=== PATIENT | female | born 1955 | race Two or more races ===

== ENCOUNTER 2023-11-27 14:05 | Inpatient (IN) | payer OTHER, MEDICAID ==
[~2023-11-27] VITALS: Ht 152.4 cm; Wt 48.6 kg
[2023-11-27 14:46] LABS: Basophils # (auto) 0 10 ^3/uL (0-0.2); Basophils % (auto) 0.7 % (0.0-2.0); Eosinophils # (auto) 0.1 10 ^3/uL (0-0.8); Eosinophils % (auto) 1.6 % (0.0-7.0); Hematocrit 38.4 % (36.0-46.0); Hemoglobin 12.6 g/dL (12.2-16.2); Lymphocytes # (auto) 1.3 10 ^3/uL (0.4-5.4); Lymphocytes % (auto) 27.9 % (10.0-50.0); Mean Corpuscular Hemoglobin 30.5 pg (28.0-32.0); Mean Corpuscular Hgb Conc. 32.7 g/dL (32.0-36.0); Mean Corpuscular Volume 93.3 fL (80.0-100.0); Monocytes # (auto) 0.4 10 ^3/uL (0-1.3); Neutrophils # (auto) 2.9 10 ^3/uL (1.6-8.6); Neutrophils % (auto) 60.8 % (37.0-80.0); Nucleated Red Blood Cells % 0.2 %; Red Blood Cells 4.11 10^6/uL (4.0-5.20); White Blood Cell 4.8 10^3/uL (4.4-10.8)
[2023-11-27 15:03] LABS: Alanine Aminotransferase 49 U/L (7-40); Albumin 3.8 g/dL (3.2-4.8); Alkaline Phosphatase 158 U/L (46-116); Anion Gap 10 (5-15); Aspartate Aminotransferase 31 U/L (13-40); BUN/Creatinine Ratio 26.8 (10.0-20.0); Bilirubin, Total 0.7 mg/dL (0.2-1.0); Blood Urea Nitrogen 33 mg/dL (9-23); Calcium 9.4 mg/dL (8.7-10.4); Carbon Dioxide 22 mmol/L (20-30); Chloride 110 mmol/L (98-107); Glucose 100 mg/dL (74-106); Magnesium 1.8 mg/dL (1.6-2.6); Potassium 3.7 mmol/L (3.5-5.1); Sodium 142 mmol/L (136-145)
[2023-11-27 15:04] LABS: Total Protein 5.9 g/dL (5.7-8.2)
[2023-11-27 15:06] LABS: Red Cell Distribution Width 22.9 % (11.8-14.3)
[2023-11-27 15:13] LABS: INR 1.13 (0.9-1.15); Partial Thromboplastin Time 26.6 SEC (24.5-34.5); Prothrombin Time 11.9 sec (9.3-11.8)
[2023-11-27 16:27] VITALS: PULSE 101; RESP 18; O2SAT 100
[2023-11-27] MEDS: FUROSEMIDE 40 MG/4 ML VIAL IV ONE (16:37)
[2023-11-27] MEDS: ENOXAPARIN SOD 60 MG/0.6 ML SYRINGE SC ONE (16:37)
[2023-11-27] MEDS ORDERED: hydrALAZINE HCL 20 MG/ML VL IV PRN (17:30)
[2023-11-27] MEDS ORDERED: DOCUSATE SOD 100 MG CAP PO PRN (17:30)
[2023-11-27] MEDS ORDERED: NITROGLYCERIN 0.4 MG SL TAB SL PRN (20:30)
[2023-11-27] MEDS: MORPHINE SULFATE INJ 2 MG/ml SYRG IV PRN (22:07)
[2023-11-27] MEDS: ATORVASTATIN 20 MG TAB PO SCH (22:11)
[2023-11-27] MEDS: SODIUM CHLOR 0.9% PF (SALINE LOCK) 10ML VIAL/SYR IV SCH (22:12)
[2023-11-28] VITALS (10 sets, daily range): BP systolic 106–132; BP diastolic 83–103; PULSE 55–103; RESP 12–20; TEMP 94.6–98.1; O2SAT 90–100
[2023-11-28] MEDS ORDERED: CARV3.1240 PO (02:47)
[2023-11-28] MEDS ORDERED: ASPI81CH59 PO (02:47)
[2023-11-28] MEDS ORDERED: FURO40TA4 PO (02:47)
[2023-11-28 07:33] LABS: Basophils # (auto) 0 10 ^3/uL (0-0.2); Basophils % (auto) 0.8 % (0.0-2.0); Eosinophils # (auto) 0.1 10 ^3/uL (0-0.8); Eosinophils % (auto) 1.2 % (0.0-7.0); Hematocrit 38.7 % (36.0-46.0); Hemoglobin 12.9 g/dL (12.2-16.2); Lymphocytes # (auto) 1.4 10 ^3/uL (0.4-5.4); Lymphocytes % (auto) 30.5 % (10.0-50.0); Mean Corpuscular Hemoglobin 30.8 pg (28.0-32.0); Mean Corpuscular Hgb Conc. 33.4 g/dL (32.0-36.0); Mean Corpuscular Volume 92.2 fL (80.0-100.0); Monocytes # (auto) 0.4 10 ^3/uL (0-1.3); Neutrophils # (auto) 2.8 10 ^3/uL (1.6-8.6); Neutrophils % (auto) 59.5 % (37.0-80.0); Nucleated Red Blood Cells % 0.4 %; White Blood Cell 4.6 10^3/uL (4.4-10.8)
[2023-11-28 07:48] LABS: Red Cell Distribution Width 22.6 % (11.8-14.3)
[2023-11-28 07:50] LABS: Alanine Aminotransferase 46 U/L (7-40); Albumin 3.9 g/dL (3.2-4.8); Alkaline Phosphatase 157 U/L (46-116); Anion Gap 12 (5-15); BUN/Creatinine Ratio 23.9 (10.0-20.0); Blood Urea Nitrogen 34 mg/dL (9-23); Calcium 9.7 mg/dL (8.7-10.4); Carbon Dioxide 23 mmol/L (20-30); Chloride 107 mmol/L (98-107); Glucose 111 mg/dL (74-106); Sodium 142 mmol/L (136-145); Total Protein 6.6 g/dL (5.7-8.2)
[2023-11-28 07:54] LABS: Aspartate Aminotransferase 28 U/L (13-40)
[2023-11-28] MEDS: ASPirin 81 mg TAB PO SCH (09:29)
[2023-11-28] MEDS: FUROSEMIDE 40 MG/4 ML VIAL IV SCH (09:30)
[2023-11-28] MEDS: ONDANSETRON HCL 4 MG/2 ML VIAL IV PRN (17:22)
[2023-11-28] MEDS: CARVEDILOL 3.125 MG TAB PO SCH (21:47)
[2023-11-28] MEDS ORDERED: hydrALAZINE HCL 25 MG TAB PO SCH (22:00)
[2023-11-29] VITALS (7 sets, daily range): BP systolic 95–120; BP diastolic 75–94; PULSE 81–93; RESP 17–19; TEMP 97.6–98.7; O2SAT 90–100
[2023-11-29] MEDS: HYDROcodone-ACET 5/325MG TAB PO PRN (03:04)
[2023-11-29 06:07] LABS: Base Excess -1.8 mmol/L (-2.0-2.0)
[2023-11-29] MEDS: ACETAMINOPHEN 325 MG TAB PO PRN (06:43)
[2023-11-29] MEDS: ISOSORBIDE MONONITRATE ER 60 MG TAB PO SCH (09:14)
[2023-11-29] MEDS: ENOXAPARIN SOD 60 MG/0.6 ML SYRINGE SC SCH (18:31)
[2023-11-29] MEDS: METOPROLOL TARTRATE 25 MG TAB PO ONE (18:57)
[2023-11-29] MEDS ORDERED: CARVEDILOL 3.125 MG TAB PO SCH (22:00)
[2023-11-29] MEDS ORDERED: hydrALAZINE HCL 25 MG TAB PO SCH (22:00)
[2023-11-30 08:00] VITALS: PULSE 84; O2SAT 100
[2023-11-30 09:00] VITALS: BP 112/88; PULSE 68; RESP 16; TEMP 98.3; O2SAT 100
[2023-11-30] MEDS: METOPROLOL TARTRATE 25 MG TAB PO SCH (09:21)
[2023-11-30] MEDS: hydrALAZINE HCL 25 MG TAB PO SCH (10:26)
[2023-11-30 13:00] VITALS: BP 108/81; PULSE 82; RESP 16; TEMP 97.9; O2SAT 100
[2023-11-30 16:43] VITALS: BP 114/86; PULSE 85; RESP 16; TEMP 98; O2SAT 92
[2023-11-30 20:00] VITALS: PULSE 80; PULSE 82; RESP 19; O2SAT 100
[2023-11-30 20:55] LABS: Chloride 109 mmol/L (98-107); Potassium 4.1 mmol/L (3.5-5.1); Sodium 142 mmol/L (136-145)
[2023-11-30 20:56] LABS: Anion Gap 7 (5-15); Carbon Dioxide 26 mmol/L (20-30)
[2023-11-30 20:57] LABS: Calcium 8.8 mg/dL (8.7-10.4)
[2023-11-30 21:00] VITALS: BP 100/74; PULSE 80; RESP 19; TEMP 97.8; O2SAT 100
[2023-11-30 21:01] LABS: BUN/Creatinine Ratio 27.5 (10.0-20.0); Blood Urea Nitrogen 42 mg/dL (9-23); Glucose 114 mg/dL (74-106)
[2023-11-30] MEDS ORDERED: METOPROLOL SUCCINATE XL 50 MG TAB PO SCH (22:00)
[2023-12-01] VITALS (8 sets, daily range): BP systolic 120–133; BP diastolic 82–97; PULSE 74–96; RESP 15–20; TEMP 97.4–98.7; O2SAT 67–100
[2023-12-01] MEDS: METOPROLOL SUCCINATE XL 50 MG TAB PO SCH (21:46)
[2023-12-02] VITALS (9 sets, daily range): BP systolic 117–130; BP diastolic 79–98; PULSE 52–97; RESP 17–22; TEMP 97–98.4; O2SAT 90–100
[2023-12-02] MEDS: APIXABAN 2.5 MG TAB PO SCH (06:21)
[2023-12-02 07:40] LABS: Anion Gap 10 (5-15); Carbon Dioxide 27 mmol/L (20-30); Chloride 105 mmol/L (98-107); Potassium 4.2 mmol/L (3.5-5.1); Sodium 142 mmol/L (136-145)
[2023-12-02 07:41] LABS: Calcium 8.8 mg/dL (8.7-10.4)
[2023-12-02 07:46] LABS: BUN/Creatinine Ratio 25.4 (10.0-20.0); Glucose 103 mg/dL (74-106)
[2023-12-02 07:50] LABS: Blood Urea Nitrogen 30 mg/dL (9-23)
[2023-12-02] MEDS: hydrALAZINE HCL 25 MG TAB PO SCH (10:30)
[2023-12-02] MEDS ORDERED: LORazepam 0.5 MG TAB PO PRN (14:30)
[2023-12-02 15:11] LABS: Base Excess 1.2 mmol/L (-2.0-2.0)
[2023-12-03] VITALS (9 sets, daily range): BP systolic 124–142; BP diastolic 86–106; PULSE 51–106; RESP 17–19; TEMP 97.3–98.1; O2SAT 94–100
[2023-12-03 07:15] LABS: Chloride 106 mmol/L (98-107); Potassium 4.7 mmol/L (3.5-5.1); Sodium 141 mmol/L (136-145)
[2023-12-03 07:16] LABS: Anion Gap 6 (5-15); Calcium 9.2 mg/dL (8.7-10.4); Carbon Dioxide 29 mmol/L (20-30)
[2023-12-03 07:21] LABS: BUN/Creatinine Ratio 24.2 (10.0-20.0); Blood Urea Nitrogen 30 mg/dL (9-23); Glucose 116 mg/dL (74-106)
[2023-12-03] MEDS ORDERED: METO25TA93 PO (12:44)
[2023-12-03] MEDS ORDERED: LORA-655 PO (12:44)
[2023-12-03] MEDS ORDERED: HYDR25TA87 PO (12:44)
[2023-12-03] MEDS ORDERED: ISOS1TAB29 PO (12:44)
[2023-12-03] MEDS ORDERED: FURO1TAB33 PO (12:48)
[2023-12-03] MEDS ORDERED: APIX2.5T PO (12:48)
[2023-12-04 01:00] VITALS: BP 129/96; PULSE 99; RESP 19; TEMP 97.5; O2SAT 97
[2023-12-04 05:00] VITALS: BP 124/90; PULSE 102; RESP 19; TEMP 98.7; O2SAT 99
[2023-12-04 09:00] VITALS: BP 139/86; PULSE 101; RESP 22; TEMP 97.6; O2SAT 100
== END 2023-12-04 11:52 | disposition home or self-care (01) | DRG 280 ==
LOC: EDBD 14:05 → ER 14:12 → TELE 20:31 → TELE-CENTR 11-28 02:40
PROVIDERS: ADMIT Nurse Practitioner Family; ATTEND Nurse Practitioner Acute Care
DX: I11.0 Hypertensive heart disease with heart failure (principal); I50.23 Acute on chronic systolic (congestive) heart failure; I21.A1 Myocardial infarction type 2; J96.01 Acute respiratory failure with hypoxia; N17.0 Acute kidney failure with tubular necrosis; I42.9 Cardiomyopathy, unspecified; N20.0 Calculus of kidney; R74.01 Elevation of levels of liver transaminase levels; E78.5 Hyperlipidemia, unspecified; N13.9 Obstructive and reflux uropathy, unspecified; I48.0 Paroxysmal atrial fibrillation; Z87.442 Personal history of urinary calculi; Z83.3 Family history of diabetes mellitus; Z79.82 Long term (current) use of aspirin; Z79.899 Other long term (current) drug therapy; Z93.6 Other artificial openings of urinary tract status
CPT/HCPCS: 36415; 36600; 71045; 80048; 80053; 82805; 83735; 83880; 84484; 85025; 85610; 85730; 93005; 93306; 99291; G0378; J2405

== ENCOUNTER → 2024-03-06 | Outpatient (CLI) | payer MEDICARE, MEDICAID ==
[~2024-03-06] VITALS: Ht 152.4 cm; Wt 42.2 kg
[~2024-03-06] MED LIST: AMIO200T13 PO; APIX2.5T PO; BUDE1AER16 PO; CARV-214 PO; FURO40TA4 PO; HYDR25TA87 PO; IPRAAER6 PO; ISOS1TAB29 PO; LORA-655 PO; MIDO10TA10 PO; PANT40TA2 PO; POTA-36 PO; SODI650T PO
[2024-03-06] MEDS: REGADENOSON 0.4 MG/5 ML SYRG IV ONE ×2 (11:38→11:44)
--- NOTE | 2024-03-07 09:41 | DVHSR ---
APPROVED REPORT Exam: Nuclear Stress Test Indication: Atrial Fibrillation, Congestive Heart Failure, CKD BMI: 0 Medical History Medical History: Atrial Fibrillation, CHF Allergies: No known drug allergies Stress Test Details Stress Test: Pharmacologic stress testing performed using 0.4 mg of regadenoson per 5 mL given IV ov er 10 seconds. HR Resting HR: 82 bpmMax Heart Rate (APMHR): 150.749976 bpm Max HR Achieved: 89 bpmTarget HR (85% APMHR): 127.527725 bpm % of APMHR: 59.33 Recovery HR: 78 bpm BP Resting BP: 130/93 mmHg Recovery BP: 126/79 mmHg ECG Resting ECG: Sinus Rhythm Clinical Reason for Termination: Completed protocol Nurse Comments Recieved pt. from [facility]. A/Ox4 on RA. Connected to electronic device monitor, VS stable. PIV flushes well. Reviewed POC. Pt. verbalized understanding of procedure including risks and side ef fects, agrees for stress testing. Lexiscan stress test performed per protocol. [facility] tech administered Cardiolite. Pt. tolerated well . Pt. stable, no change on exam. VS returned to baseline. Transferred to [facility] via wheelchair w/ te ch. Stress ECG Conclusion Resting ECG shows normal sinus rhythm with a poor R-wave progression indicating possible old anterior infarction. No significant STT wave changes was noted to suggest ischemia. Resting images shows near homogeneous uptake of radioactive tracer throughout the myocardium without evidence of myocardial infarction. Stress images shows near homogeneous uptake of radioactive tracer throughout the myocardium without e vidence of myocardial ischemia. There is severely reduced left ventricular systolic function estimated ejection fraction 21%. Impression: Severely reduced left ventricular systolic function, no evidence of ischemia, low to mod erate risk study NM EXAM: Myocardial Perfusion REST/STRESS Imaging Protocol: Rest Tc-99m/Stress Tc-99m 1 day Resting Data Rest SPECT myocardial perfusion imaging was performed in supine position 30 minutes following the int ravenous injection of 7.6 mCi of Tc-99m Sestamibi. Time of rest injection: 1050 Time of rest imagin Date: 03/06/2024 Administration Route: IV Administration Site: Right Hand Pharmacologic Stress Pharmacologic stress test was performed by injecting Regadenoson 0.4 mg IV push followed by the intra venous injection of 21.5 mCi of Tc-99m Sestamibi. Pharmacologic stress test was performed by injecting mg IV push followed by the intravenous inject ion of mCi of Time of stress injection: 1137 Time of stress imagin Administration Route: IV Administration Site: Right Hand Gated Stress SPECT was performed 45 minutes after stress injection. The images were gated to evaluate regional wall motion and calculate left ventricular ejection fracti on. Nuclear Conclusion ECG Findings: negative for ischemia Clinical Findings: negative for ischemia Nuclear Findings: negative for ischemia Exercise Capacity: not assessed Left Ventricular Function: abnormal Risk Study: low Resting ECG shows normal sinus rhythm with a poor R-wave progression indicating possible old anterior infarction. No significant STT wave changes was noted to suggest ischemia. Resting images shows near homogeneous uptake of radioactive tracer throughout the myocardium without evidence of myocardial infarction. Stress images shows near homogeneous uptake of radioactive tracer throughout the myocardium without e vidence of myocardial ischemia. There is severely reduced left ventricular systolic function estimated ejection fraction 21%. Impression: Severely reduced left ventricular systolic function, no evidence of ischemia, low to mod erate risk study
== END | disposition home or self-care (01) ==
LOC: XYW 10:38
PROVIDERS: ATTEND Specialist
DX: I48.91 Unspecified atrial fibrillation (principal); I50.9 Heart failure, unspecified; N18.9 Chronic kidney disease, unspecified
CPT/HCPCS: 78452; 93017; A9500; J2785

== ENCOUNTER 2024-04-26 15:58 | Emergency (ER) | payer OTHER, MEDICAID ==
[~2024-04-26] VITALS: Ht 152.4 cm; Wt 41.0 kg
--- NOTE | 2024-04-26 16:37 | ED.PDOC ---
SOB-HPI HPI Comments HPI: Poor Historian. 68-year-old female brought in by ambulance from home an accompanied by her daughter bedside. Patient was discharged from [facility] yesterday where she was being evaluated for chronic congestive heart failure. She was started on a dobutamine drip at that time and was discharged home with a a drip. Home health nurse was supposed to come today to show the family how to refill it and how to use it. The daughter suspected that the pump was not working and stated the patient started developing shortness of breath and hour after. She tried to reach home health but they are not coming to her house today. Pre-hospital course vital signs were stable. Patient wears supplement oxygen at home. Upon arrival the nursing staff evaluated the pump and they are still medicine left in the bag and it appears to be working fine. VITALS: Temp: 97.6 F RR: 20 02 sat : 93 % on room air HR: 81 BP: 117/72 PMH: AFIB, ADIS, CHF, CKF, HLD, HTN, Home O2 use, and acute respiratory failure. PSH: CABG, left chronic nephrostomy tube for history of kidney stones, partial hysterectomy Social history: denies tobacco use, denies ETOH use, denies drug use Medications: levothyroxine, Protonix, Bumex, Lipitor, eliquis Allergies: denies REVIEW OF SYSTEMS: CONSTITUTIONAL: Denies acute: fever, diaphoresis, chills, HEAD: Denies acute: headache, photophobia Eyes: Denies acute: Double vision, vision loss, eye pain, eye discharge. EARS: Denies acute: tinnitus, hearing loss, ear discharge, ear pain, THROAT: Denies acute: sore throat, swelling, difficulty swallowing , pain with swallowing, change in voice. NECK: Denies acute: neck pain, neck swelling, stiff neck. HEART: Denies acute : chest pain, palpitations, LUNGS: Denies acute: wheezing, cough, hemoptysis ABDOMEN: Denies acute: abdominal pain, Nausea, Vomiting, diarrhea, melena , hematemesis, hematochezia SKIN: Denies acute: rash, redness, lesions, itchiness. EXTREMITIES: Denies acute: calf pain, numbness, tingling, weakness, denies pain in extremity. Denies acute: Low back pain. Neuro: Denies acute: focal neurological deficit, motor or sensory focal neurological deficit, tremors, seizure like activity, confusion, dizziness, change in mental status, loss of bowel or bladder function, cauda equina like symptoms. : Denies acute: dysuria, hematuria, flank pain, increase in urinary frequency. PSYCH: Denies acute: hallucination, suicidal ideation, homicidal ideation. FEMALE: Denies acute: abnormal vaginal bleeding, foul odor, unusual discharge. PHYSICAL EXAM: General: no acute distress, awake and alert. Head: normocephalic, atraumatic. Neck: supple, trachea is midline, no swelling. Throat: Normal phonation. Eyes:, no erythema, no purulent discharge, no proptosis, no icterus. Heart: regular rate, regular rhythm, no significant murmur appreciated. Lungs: no apparent respiratory distress, Able to speak in full sentences. No wheezing, no rhonchi, no crackles. No stridors Clear to auscultation bilaterally. Abdomen: non tender to palpation, non distended, soft, no guarding, no rebound, + bowel sounds. Neuro: Awake, Alert, oriented to name, self, situation, follows commands GCS=15. Speech is normal. Skin: no petechia, no purpura, no cyanosis, non-pale, not jaundice. Lower extremities: --no - Pitting edema no deformity, no focal swelling, no calf TTP. Makes eye contact. moves all four extremities. Face: no apparent facial droop. 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 Was a procedure done?: No X-Ray, Labs, Meds, VS Vital Signs Date Time Temp Pulse Resp B/P (MAP) Pulse Ox O2 Delivery O2 Flow Rate FiO2 04/26/24 19:11 120/69 04/26/24 16:50 79 12 109/74 (86) 100 04/26/24 16:50 79 12 100 Nasal Cannula* 2 28 04/26/24 16:17 97.6 81 20 117/72 (87) 93 04/26/24 16:04 80 Lab Test 04/26/24 18:05 04/26/24 17:00 Range/Units Troponin I High Sensitivity 25 23 </=34 ng/L White Blood Count 6.6 4.4-10.8 10^3/uL Red Blood Count 3.41 L 4.0-5.20 10^6/uL Hemoglobin 9.3 L 12.2-16.2 g/dL Hematocrit 29.4 L 36.0-46.0 % Mean Corpuscular Volume 86.3 80.0-100.0 fL Mean Corpuscular Hemoglobin 27.4 L 28.0-32.0 pg Mean Corpuscular Hemoglobin Concent 31.8 L 32.0-36.0 g/dL Red Cell Distribution Width 21.0 H 11.8-14.3 % Platelet Count 545 H 140-450 10^3/uL Mean Platelet Volume 7.4 6.9-10.8 fL Neutrophils (%) (Auto) 75.8 37.0-80.0 % Lymphocytes (%) (Auto) 9.6 L 10.0-50.0 % Monocytes (%) (Auto) 11.4 0.0-12.0 % Eosinophils (%) (Auto) 2.0 0.0-7.0 % Basophils (%) (Auto) 1.2 0.0-2.0 % Neutrophils # (Auto) 5.0 1.6-8.6 10 ^3/uL Lymphocytes # (Auto) 0.6 0.4-5.4 10 ^3/uL Monocytes # (Auto) 0.8 0-1.3 10 ^3/uL Eosinophils # (Auto) 0.1 0-0.8 10 ^3/uL Basophils # (Auto) 0.1 0-0.2 10 ^3/uL Nucleated Red Blood Cells 0.1 % Sodium Level 132 L 136-145 mmol/L Potassium Level 3.9 3.5-5.1 mmol/L Chloride Level 103 98-107 mmol/L Carbon Dioxide Level 19 L 20-31 mmol/L Anion Gap 10 5-15 Blood Urea Nitrogen 62 H 9-23 mg/dL Creatinine 2.89 H 0.550-1.02 mg/dL Glomerular Filtration Rate Calc 17 >90 mL/min BUN/Creatinine Ratio 21.5 H 10.0-20.0 Serum Glucose 79 74-106 mg/dL Calcium Level 9.7 8.7-10.4 mg/dL Total Bilirubin 0.2 0.2-1.0 mg/dL Aspartate Amino Transferase (AST) 47 H 13-40 U/L Alanine Aminotransferase (ALT) 38 7-40 U/L Alkaline Phosphatase 202 H 46-116 U/L B-Type Natriuretic Peptide 224.08 0-100 pg/mL Total Protein 7.8 5.7-8.2 g/dL Albumin 4.1 3.2-4.8 g/dL Current Medications Medications (Trade) Dose Ordered Sig/Mic Route Start Time Stop Time Status Last Admin Acetaminophen/ Hydrocodone Bitart ([place] 5/325MG Tab) 1 tab ONCE ONCE PO 04/26/24 17:45 04/26/24 17:46 DC 04/26/24 17:45 [place] [address] Ph: [phone] DIAGNOSTIC IMAGING Diagnostic Imaging Report : [id number] Signed PATIENT: CHRISSY MONTOYA ACCT: [id number] UNIT: [id number] : 1955 LOC: ER ROOM / BED: / AGE / SEX: 68 / F ADM STATUS: REG ER SERVICE 1632 ORDERING PHYSICIAN: KAROLINA KEEN DO PROCEDURE(s): CXRP - CHEST PORTABLE REASON: sob ORDER NUMBER(s): [id number], ACCESSION NUMBER(s): [id number] EXAMINATION: AP portable chest radiograph CLINICAL HISTORY: sob COMPARISON: XY CHEST XRAY 1 VIEW on DOS: 02/06/24 FINDINGS: Lead wires overlie the thorax. Right-sided PICC line is noted. Cardiac silhouette appears mildly enlarged. Mild central interstitial prominence. No dominant consolidation identified. No definite pleural effusion or pneumothorax. IMPRESSION: Mild congestive type pattern. Please correlate to exclude atypical infection. ATED BY: JAMIE LE MD DICTATED DATE/TIME: 04/26/24 6289 SIGNED BY: JAMIE LE MD SIGNED DATE/TIME: 04/26/24 173 CC: Time of 1ST Reevaluation: 19:18 (I discussed with the patient and family admission to the hospital. Patient absolutely does not want to stay in the h ospital. Her breathing and vital signs are stable. She wants to go home. Her dobutamine drip is functional. Daughter at bedside agrees with the plan.) Reevaluation 1ST: Resolved Patient Education/Counseling: Diagnosis, Treatment Family Education/Counseling: No Family Present Comments MDM: Patient presented with the above HPI.----- shortness of breath---- workup was initiated. patient was found with the above mentioned diagnosis. the following medications were ordered: [place], Lasix the following tests were ordered: troponin x3, EKG x 1, chest x-ray, UA, CBC, CMP, BNP, Patient ED course and VS have been stabilized. Patient has been reassessed in the ED and remained in a stable condition. Patient has been observed in the ED adequate length of time to insure improvement/stability. Escalation of care considered: Consideration of escalation to observation or admission. patient was DISCHARGED after further evaluation and treatment of their presentation. All the reports of any imaging studies that were ordered by myself were reviewed by myself. Departure 1 Departure Time of Disposition: 19:18 Impression: Primary Impression: Dyspnea Additional Impression: Congestive heart failure Disposition: 01 HOME / SELF CARE / HOMELESS Condition: Stable Additional Instructions: Additional discharge instructions: You MUST follow-up with your primary care/family doctor in 1 to 2 days. If you are unable to see your primary care/family doctor, please return to our emergency room for re-assessment and re-evaluation in 1 to 2 days. Return to the emergency room here in our facility or to the nearest ER [facility] if your symptoms change or worsen. CONSULTATIONS: you MUST Follow-up for consultation as soon as possible with: cardiology in 1-2 days. Please call for appointment. You MUST call the consultants office yourself to make an appointment. You may need to arrange that through your insurance and/or your primary/family doctor. If you are unable to see the sales consultant residential manager in 1 to 2 days, you must return to our emergency room (or any other ER of your choice) for re-assessment and re- evaluation. Adequate fluid hydration. Below is a copy of your radiological report for follow up: [facility] [id number] [facility] [address] Ph: [phone] DIAGNOSTIC IMAGING Diagnostic Imaging Report : [id number] Signed PATIENT: CHRISSY MONTOYA ACCT: [id number] UNIT: [id number] : 1955 LOC: ER ROOM / BED: / AGE / SEX: 68 / F ADM STATUS: REG ER SERVICE 1632 ORDERING PHYSICIAN: KAROLINA KEEN DO PROCEDURE(s): CXRP - CHEST PORTABLE REASON: sob ORDER NUMBER(s): [id number], ACCESSION NUMBER(s): [id number] EXAMINATION: AP portable chest radiograph CLINICAL HISTORY: sob COMPARISON: XY CHEST XRAY 1 VIEW on DOS: 02/06/24 FINDINGS: Lead wires overlie the thorax. Right-sided PICC line is noted. Cardiac silhouette appears mildly enlarged. Mild central interstitial prominence. No dominant consolidation identified. No definite pleural effusion or pneumothorax. IMPRESSION: Mild congestive type pattern. Please correlate to exclude atypical infection. ATED BY: JAMIE LE MD DICTATED DATE/TIME: 04/26/241730 SIGNED BY: JAMIE LE MD SIGNED DATE/TIME: 04/26/241730 CC: Discharged With: Self Critical Care Note Critical Care Time?: No Heart Score Heart Score: Heart Score Response (Comments) Value History Moderate Suspicious 1 Age >65 2 Risk Factors >3 or Hx ASHD 2 Troponin Normal limit 0 Total 5 I personally scribed for KAROLINA KEEN DO ([email or web address]) on 04/26/24 at 17:53. Electronically submitted by Sj Quiles ([employer]). I personally scribed for KAROLINA KEEN DO ([email or web address]) on 04/26/24 at 19:55. Electronically submitted by Sj Quiles ([employer]). I personally scribed for KAROLINA KEEN DO ([email or web address]) on 04/26/24 at 21:28. Electronically submitted by Sj Quiles ([employer]). KAROLINA KEEN DO Apr 26, 2024 16:37
[2024-04-26 16:50] VITALS: BP 109/74; PULSE 79; RESP 12; O2SAT 100
[2024-04-26 17:29] LABS: Basophils # (auto) 0.1 10 ^3/uL (0-0.2); Eosinophils # (auto) 0.1 10 ^3/uL (0-0.8); Hemoglobin 9.3 g/dL (12.2-16.2); Lymphocytes # (auto) 0.6 10 ^3/uL (0.4-5.4); Mean Corpuscular Volume 86.3 fL (80.0-100.0); Monocytes # (auto) 0.8 10 ^3/uL (0-1.3); White Blood Cell 6.6 10^3/uL (4.4-10.8)
[2024-04-26 17:31] LABS: Basophils % (auto) 1.2 % (0.0-2.0); Hematocrit 29.4 % (36.0-46.0); Lymphocytes % (auto) 9.6 % (10.0-50.0); Mean Corpuscular Hemoglobin 27.4 pg (28.0-32.0); Mean Corpuscular Hgb Conc. 31.8 g/dL (32.0-36.0); Monocytes % (auto) 11.4 % (0.0-12.0); Neutrophils % (auto) 75.8 % (37.0-80.0); Nucleated Red Blood Cells % 0.1 %; Platelet Count (auto) 545 10^3/uL (140-450); Red Blood Cells 3.41 10^6/uL (4.0-5.20)
--- NOTE | 2024-04-26 17:33 | DVH ---
EXAMINATION: AP portable chest radiograph CLINICAL HISTORY: sob COMPARISON: XY CHEST XRAY 1 VIEW on DOS: 02/06/24 FINDINGS: Lead wires overlie the thorax. Right-sided PICC line is noted. Cardiac silhouette appears mildly enlarged. Mild central interstitial prominence. No dominant consoli dation identified. No definite pleural effusion or pneumothorax. IMPRESSION: Mild congestive type pattern. Please correlate to exclude atypical infection.
[2024-04-26] MEDS: HYDROcodone-ACET 5/325MG TAB PO ONE (17:45)
[2024-04-26 18:05] LABS: Alanine Aminotransferase 38 U/L (7-40); Albumin 4.1 g/dL (3.2-4.8); Anion Gap 10 (5-15); BUN/Creatinine Ratio 21.5 (10.0-20.0); Calcium 9.7 mg/dL (8.7-10.4); Chloride 103 mmol/L (98-107); Glucose 79 mg/dL (74-106); Potassium 3.9 mmol/L (3.5-5.1)
[2024-04-26 18:06] LABS: Total Protein 7.8 g/dL (5.7-8.2)
[2024-04-26 18:13] LABS: Alkaline Phosphatase 202 U/L (46-116); Aspartate Aminotransferase 47 U/L (13-40); Bilirubin, Total 0.2 mg/dL (0.2-1.0); Blood Urea Nitrogen 62 mg/dL (9-23); Carbon Dioxide 19 mmol/L (20-31); Sodium 132 mmol/L (136-145)
--- NOTE | 2024-04-26 19:03 | ECG ---
[facility] Test Date: 2024-04-26 Test Time: 16:04:28 Pat Name: CHRISSY MONTOYA Department: ED Room: Gender: F Fullerette: TYLER : 1955 Requested By: KAROLINA KEEN Order Number: [id number] Reading MD: Jonah Gamble Measurements Intervals [place] Rate: 80 P: 36 FL: 194 QRS: -28 QRSD: 96 T: 87 QT: 402 QTc: 464 Interpretive Statements Sinus rhythm Left ventricular hypertrophy Inferior infarct, old Anterior infarct, old Lateral leads are also involved Baseline wander in lead(s) III Electronically Signed On 04-30-2024 13:02:39 PST by Jonah Gamble Please click the below link to view image of tracing.
[2024-04-26] MEDS: FUROSEMIDE 20 MG/2 ML VIAL IV ONE (19:11)
== END 2024-04-27 19:53 | disposition home or self-care (01) ==
LOC: ER 15:58 → EDBD 15:58 → ER 04-27 19:53
DX: I11.0 Hypertensive heart disease with heart failure (principal); I50.9 Heart failure, unspecified; E78.5 Hyperlipidemia, unspecified; I25.2 Old myocardial infarction; Z95.1 Presence of aortocoronary bypass graft; Z99.81 Dependence on supplemental oxygen
CPT/HCPCS: 36415; 71045; 80053; 83880; 84484; 85025; 93005

== ENCOUNTER 2024-07-26 15:43 | Inpatient (IN) | payer OTHER, MEDICAID ==
[~2024-07-26] VITALS: Ht 147.3 cm; Wt 42.7 kg
--- NOTE | 2024-07-26 16:09 | ED.PDOC ---
General HPI Comments HPI: 69 year old female presents to the ED with chief complaint of left flank pain and nephrostomy tube disfunction. Patient reports that she has been experiencing pain to her left flank for the past 2 days with associated minimal output to her nephrostomy bag, despite taking water pills. Patient relays that she originally had her nephrostomy placed due to having a kidney stone on the left side 7 months ago and the most recent replacement was on 04/25 at [facility]. Patient states that she has associated chest pain whenever her left flank pain comes on. Patient's daughter notes that the patient receives Dobutamine infusions daily through a right upper extremity PICC line for her CHF. Patient denies any fever, chills, abdominal pain, dysuria, hematuria, or SOB. Initial Vital Signs: Temp : 99.2F BP: 123/78 HR: 117 RR: 16 SpO2: 99% on RA Past Medical History: HTN, HLD, CKF, CHF, A-Fib, Kidney stones Past Surgical History: Left nephrostomy. Social History: Denies smoking, ETOH, or drug use. Allergies: NKDA HPI: Poor Historian. REVIEW OF SYSTEMS: CONSTITUTIONAL: Denies acute: fever, diaphoresis, chills, generalized weakness. HEAD: Denies acute: headache, photophobia Eyes: Denies acute: Double vision, vision loss, eye pain, eye discharge. EARS: Denies acute: tinnitus, hearing loss, ear discharge, ear pain, THROAT: Denies acute: sore throat, swelling, difficulty swallowing , pain with swallowing, change in voice. NECK: Denies acute: neck pain, neck swelling, stiff neck. HEART: Denies acute : chest pain, palpitations, LUNGS: Denies acute: SOB, wheezing, cough, hemoptysis ABDOMEN: Denies acute: abdominal pain, Nausea, Vomiting, diarrhea, melena , hematemesis, hematochezia SKIN: Denies acute: rash, redness, lesions, itchiness. EXTREMITIES: Denies acute: calf pain, numbness, tingling, weakness, denies pain in extremity. Denies acute: Low back pain. Neuro: Denies acute: focal neurological deficit, motor or sensory focal neurological deficit, tremors, seizure like activity, confusion, dizziness, change in mental status, loss of bowel or bladder function, cauda equina like symptoms. : Denies acute: dysuria, hematuria, increase in urinary frequency. PSYCH: Denies acute: hallucination, suicidal ideation, homicidal ideation. FEMALE: Denies acute: abnormal vaginal bleeding, foul odor, unusual discharge. PHYSICAL EXAM: General: [id number] acute distress, awake and alert. Head: normocephalic, atraumatic. Neck: supple, trachea is midline, no swelling. Throat: Normal phonation. Eyes:, no erythema, no purulent discharge, no proptosis, no icterus. Heart: regular rate, regular rhythm, no significant murmur appreciated. Lungs: no apparent respiratory distress, Able to speak in full sentences. No wheezing, no rhonchi, no crackles. No stridors Clear to auscultation bilaterally. Abdomen: non tender to palpation, non distended, soft, no guarding, no rebound, + bowel sounds. Neuro: Awake, Alert, oriented to name, self, situation, follows commands GCS=15. Speech is normal. Skin: no petechia, no purpura, no cyanosis, non-pale, not jaundice. Lower extremities: --no - Pitting edema no deformity, no focal swelling, no calf TTP. Makes eye contact. moves all four extremities. Face: no apparent facial droop. Left CVA tenderness to percussion No apparent evidence of infection at the nephrostomy site ED COURSE: Time Seen by MD: 16:01 Primary Care Provider: KATIUSKA GRAYSON Reviewed notes: Nurses Notes, Allergies Allergies: Coded Allergies: NO KNOWN ALLERGIES (Unverified , 03/06/24) Home Meds Active Scripts Budesonide-Formoterol Fumarate (Breyna 160-4.5 Mcg/Act) 1 Aer Aer, 2 PUFF PO BID for 30 Days, #1 AER Prov:MELODY FRIED NP 02/07/24 Ipratropium-Albuterol (COMBIVENT RESPIMAT) Respimat Aer, 1 PUFF PO QID PRN for 30 Days, #1 AER 2 Refills INHALE 1 PUFF BY MOUTH INTO THE LUNGS FOUR TIMES DAILY Prov:MELODY FRIED INCIDENT ENGINEER 02/07/24 Amiodarone HCl (Amiodarone HCl) 200 Mg Tab, 1 TAB PO DAILY for 30 Days, #30 TAB 3 Refills Prov:MELODY FRIED INCIDENT ENGINEER 02/07/24 Carvedilol (COREG) 3.125 Mg Tab, 3.125 MG PO Q12HR for 30 Days, #60 TAB Prov:MELODY FRIED INCIDENT ENGINEER 02/07/24 Apixaban Base (ELIQUIS) 2.5 Mg Tab, 2.5 MG PO BID, #60 TAB 5 Refills Prov:OMKAR HUTCHISON MD 12/03/23 Hydralazine HCl (Hydralazine HCl) 25 Mg Tab, 25 MG PO DAILY, #30 TAB 5 Refills Prov:OMKAR HUTCHISON MD 12/03/23 Lorazepam (Ativan) 0.5 Mg Tab, 1 TAB PO Q6HPRN PRN, #30 TAB Prov:OMKAR HUTCHISON MD 12/03/23 Isosorbide Mononitrate (Isosorbide Mononitrate Er) 60 Mg Tab, 1 TAB PO DAILY, #90 TAB 3 Refills Prov:OMKAR HUTCHISON MD 12/03/23 Reported Medications Potassium Chloride (POTASSIUM CHLORIDE CR) 10 Meq Tb, 1 TAB PO DAILY 01/31/24 Midodrine HCl (Midodrine Hydrochloride) 10 Mg Tab, 10 MG PO TID 01/31/24 Pantoprazole Sodium Sesquihydr (Protonix) 40 Mg Tab, 40 MG PO DAILY 01/31/24 Furosemide (Furosemide) 40 Mg Tab, 40 MG PO DAILY 01/31/24 Sodium Bicarbonate (Sodium Bicarbonate) 650 Mg Tab, 1 TAB PO TID 01/30/24 Information Source: Patient, Relative Was a procedure done? Was a procedure done?: No Differential Diagnosis Kidney stone (Female): Other (Flank Pain;DDX include Nephrolethiasis, obstructive uropathy, kidney cancer, renal infarct, intraabdominal neoplasm, lower lobe pneumonia, retroperitoneal hemorrhage, pancreatitis, aneurysm, dissection, musculoskeletal, rib contusion/trauma, hematoma, PYLONEPHRITIS, muscle strain, spinal disease. ) X-Ray, Labs, Meds, VS Vital Signs Date Time Temp Pulse Resp B/P (MAP) Pulse Ox O2 Delivery O2 Flow Rate FiO2 07/26/24 23:10 116 17 142/90 (107) 99 07/26/24 23:09 142/90 07/26/24 20:05 130/85 07/26/24 20:00 103 18 99 Room Air* 0 21 07/26/24 20:00 98.8 103 18 130/85 (100) 99 98.8 07/26/24 16:05 99.2 117 16 123/78 (93) 99 99.2 Lab Test 07/26/24 16:40 07/26/24 00:00 Range/Units White Blood Count 6.4 4.4-10.8 10^3/uL Red Blood Count 3.52 L 4.0-5.20 10^6/uL Hemoglobin 10.0 L 12.2-16.2 g/dL Hematocrit 30.0 L 36.0-46.0 % Mean Corpuscular Volume 85.1 80.0-100.0 fL Mean Corpuscular Hemoglobin 28.3 28.0-32.0 pg Mean Corpuscular Hemoglobin Concent 33.3 32.0-36.0 g/dL Red Cell Distribution Width 15.4 H 11.8-14.3 % Platelet Count 306 140-450 10^3/uL Mean Platelet Volume 7.8 6.9-10.8 fL Neutrophils (%) (Auto) 77.4 37.0-80.0 % Lymphocytes (%) (Auto) 13.6 10.0-50.0 % Monocytes (%) (Auto) 7.5 0.0-12.0 % Eosinophils (%) (Auto) 1.1 0.0-7.0 % Basophils (%) (Auto) 0.4 0.0-2.0 % Neutrophils # (Auto) 5.0 1.6-8.6 10 ^3/uL Lymphocytes # (Auto) 0.9 0.4-5.4 10 ^3/uL Monocytes # (Auto) 0.5 0-1.3 10 ^3/uL Eosinophils # (Auto) 0.1 0-0.8 10 ^3/uL Basophils # (Auto) 0 0-0.2 10 ^3/uL Nucleated Red Blood Cells 0.1 % Sodium Level 138 136-145 mmol/L Potassium Level 3.2 L 3.5-5.1 mmol/L Chloride Level 103 98-107 mmol/L Carbon Dioxide Level 25 20-31 mmol/L Anion Gap 10 5-15 Blood Urea Nitrogen 37 H 9-23 mg/dL Creatinine 1.95 H 0.550-1.02 mg/dL Glomerular Filtration Rate Calc 27 >90 mL/min BUN/Creatinine Ratio 19.0 10.0-20.0 Serum Glucose 140 H 74-106 mg/dL Lactic Acid Level 1.8 0.4-2.0 mmol/L Calcium Level 10.2 8.7-10.4 mg/dL Total Bilirubin 0.6 0.2-1.0 mg/dL Aspartate Amino Transferase (AST) 12 L 13-40 U/L Alanine Aminotransferase (ALT) 10 7-40 U/L Alkaline Phosphatase 115 46-116 U/L B-Type Natriuretic Peptide 231.19 0-100 pg/mL Total Protein 7.6 5.7-8.2 g/dL Albumin 4.4 3.2-4.8 g/dL Urine Color Yellow Yellow Urine Clarity Ex.turbid Clear Urine pH 6.0 5.0-9.0 Urine Specific [place] 1.014 1.001-1.035 Urine Protein 1+ H Negative Urine Ketones Trace Negative Urine Blood 3+ H Negative /uL Urine Nitrite Negative Negative Urine Bilirubin Negative Negative Urine Urobilinogen Normal Negative mg/dL Urine Leukocyte Esterase 3+ Negative /uL Urine RBC 14 0 - 4 /hpf Urine WBC Clumps Present None Seen /hpf Urine Microscopic WBC 341 H 0-5 /HPF Urine Squamous Epithelial Cells None seen <5 /hpf Urine Bacteria Mod H None Seen /hpf Urine Mucus Few None Seen Urine Yeast (Budding) Moderate None Seen /hpf Urine Glucose Normal Normal mg/dL Current Medications Medications (Trade) Dose Ordered Sig/Mic Route Start Time Stop Time Status Last Admin Fentanyl Citrate 100 mcg ONCE ONCE IV 07/26/24 19:30 07/26/24 19:31 DC 07/26/24 20:05 Ceftriaxone Sodium 50 ml @ 100 mls/hr ONCE ONCE IV 07/26/24 21:00 07/26/24 21:29 DC 07/26/24 21:16 Fentanyl Citrate 100 mcg ONCE ONCE IV 07/26/24 23:00 07/26/24 23:01 DC 07/26/24 23:[address] [address] Ph: [phone] DIAGNOSTIC IMAGING Diagnostic Imaging Report : [id number] Signed with Addenda PATIENT: CHRISSY MONTOYA ACCT: [id number] UNIT: [id number] : 1955 LOC: ER ROOM / BED: / AGE / SEX: 69 / F ADM STATUS: REG ER SERVICE [id number] ORDERING PHYSICIAN: KAROLINA KEEN DO PROCEDURE(s): ABPL - CT AB PEL WO CON-NO ORAL OR IV REASON: flank pain ORDER NUMBER(s): [id number], ACCESSION NUMBER(s): [id number] ADDENDUM ADDENDUM # 1 The left external internal nephro ureteral stent is well positioned and extends from the kidney to the bladder, unchanged from the prior exam. 2.4 cm right renal mass arising from the superior pole of the right kidney, ultrasound recommended. Impression: Left-sided nephro ureteral stent is well positioned and unchanged in position from the prior CT study. ORIGINAL REPORT Exam: CT CT AB PEL WO CON-NO ORAL OR IV History: flank pain Comparison Study: CT CT AB PEL WO CON-NO ORAL OR IV on DOS: 02/01/24 Technique: Multidetector spiral CT of the abdomen was performed from lung bases to pubic symphysis. Imaging was performed without IV contrast. Axial, coronal and sagittal multiplanar reformats were obtained from the axial data set by the technologist. Radiation Dose : 1. Abdomen/Pelvis: CTDIvol 5.07 mGy, DLP 234.38 mGy*cm. Findings: Evaluation of solid organs is limited due to lack of intravenous contrast use. Lung Bases: Liver: The liver is normal Gallbladder and Biliary Tree: Unremarkable Spleen: Unremarkable Pancreas: The pancreas is grossly normal in appearance. Adrenal Glands: Unremarkable Kidneys: Left external internal nephroureteral stent is well positioned and unchanged from the prior study. No hydronephrosis. 2.4 cm right renal mass arising from the superior pole of the right kidney, coronal image 52, series 601. Ultrasound could be performed for further assessment as this mass is not of fluid density. Bladder: Grossly unremarkable for degree of distention. Bowel: The stomach is grossly normal in appearance. Small bowel and colon are normal in caliber and distribution. The appendix is not visualized; however, no secondary findings of acute appendicitis identified. Ascites: Absent. Resolution of the previously noted ascites. Lymphadenopathy: No mesenteric, retroperitoneal or periportal lymphadenopathy. Abdominal Wall and Mesentery: Unremarkable. Vasculature: The visualized abdominal aorta is normal in size and caliber. Evaluation of abdominal and pelvic vessels is limited due to lack of intravenous contrast. Pelvic Organs: Stable probable right adnexal dermoid. Musculoskeletal: No aggressive focal bony lesions, acute fractures or dislocation. IMPRESSION: 1. Resolution of previously noted right pleural effusion and ascites when compared to the previous studyStable Positioning of the left stent. Stable right-sided pelvic dermoid. Radiation optimization: All CT scans at this facility use at least one of these dose optimization techniques: automated exposure control mA and/or kV adjustment per patient size (includes targeted exams where dose is matched to clinical indication) or iterative reconstruction. ATED BY: KARLA MARTÍNEZ MD DICTATED DATE/TIME: 07/26/241742 SIGNED BY: KARLA MARTÍNEZ MD SIGNED DATE/TIME: 07/26/241742 CC: Exam: CT CT AB PEL WO CON-NO ORAL OR IV History: flank pain Comparison Study: CT CT AB PEL WO CON-NO ORAL OR IV on DOS: 02/01/24 Technique: Multidetector spiral CT of the abdomen was performed from lung bases to pubic symphysis. Imaging was performed without IV contrast. Axial, coronal and sagittal multiplanar reformats were obtained from the axial data set by the technologist. Radiation Dose : 1. Abdomen/Pelvis: CTDIvol 5.07 mGy, DLP 234.38 mGy*cm. Findings: Evaluation of solid organs is limited due to lack of intravenous contrast use. Lung Bases: Liver: The liver is normal Gallbladder and Biliary Tree: Unremarkable Spleen: Unremarkable Pancreas: The pancreas is grossly normal in appearance. Adrenal Glands: Unremarkable Kidneys: Left external internal nephroureteral stent is well positioned and unchanged from the prior study. No hydronephrosis. 2.4 cm right renal mass arising from the superior pole of the right kidney, coronal image 52, series 601. Ultrasound could be performed for further assessment as this mass is not of fluid density. Bladder: Grossly unremarkable for degree of distention. Bowel: The stomach is grossly normal in appearance. Small bowel and colon are normal in caliber and distribution. The appendix is not visualized; however, no secondary findings of acute appendicitis identified. Ascites: Absent. Resolution of the previously noted ascites. Lymphadenopathy: No mesenteric, retroperitoneal or periportal lymphadenopathy. Abdominal Wall and Mesentery: Unremarkable. Vasculature: The visualized abdominal aorta is normal in size and caliber. Evaluation of abdominal and pelvic vessels is limited due to lack of intravenous contrast. Pelvic Organs: Stable probable right adnexal dermoid. Musculoskeletal: No aggressive focal bony lesions, acute fractures or dislocation. IMPRESSION: 1. Resolution of previously noted right pleural effusion and ascites when compared to the previous studyStable Positioning of the left stent. Stable right-sided pelvic dermoid. Radiation optimization: All CT scans at this facility use at least one of these dose optimization techniques: automated exposure control mA and/or kV adjustment per patient size (includes targeted exams where dose is matched to clinical indication) or iterative reconstruction. ATED BY: KARLA MARTÍNEZ MD DICTATED DATE/TIME: 07/26/241702 SIGNED BY: KARLA MARTÍNEZ MD SIGNED DATE/TIME: 07/26/241702 CC: Time of 1ST Reevaluation: 17:01 Reevaluation 1ST: Unchanged Patient Education/Counseling: Diagnosis, Treatment Family Education/Counseling: No Family Present Comments Patient presented with the above HPI.---left flank pain and nephrostomy tube evaluation---workup was initiated. patient was found with the above mentioned diagnosis. the following medications were ordered: please refer to order lists of meds and tests obtained by myself Dr. Keen. Patient ED course and VS have been stabilized. Patient has been reassessed in the ED and remained in a stable condition. Pertinent incidental findings were discussed with the patient and/or family. Patient/family voices understanding and is agreeable with plan. Patient has been observed in the ED adequate length of time to insure improvement/stability. Escalation of care considered: Consideration of escalation to observation or admission CT scan was obtained. Urinalysis shows UTI. Antibiotics initiated. Given the presence of left flank pain for two days and UTI, Patient was ADMITTED to the medicine team for further evaluation and treatment of their presentation. All the reports of any imaging studies that were ordered by myself were reviewed by myself. Departure 1 Departure Time of Disposition: 16:56 Impression: Primary Impression: Left flank pain Additional Impressions: UTI (urinary tract infection) History of insertion of nephrostomy tube Disposition: ADMITTED INPATIENT Admit to: Tele Condition: Guarded Discharged With: Self, Relative Critical Care Note Critical Care Time?: No I personally scribed for KAROLINA KEEN DO ([email or web address]) on 07/26/24 at 16:09. Electronically submitted by Tani Crespo ([email or web address]). I personally scribed for KAROLINA KEEN DO ([email or web address]) on 07/26/24 at 16:16. Electronically submitted by Tani Crespo ([email or web address]). I personally scribed for KAROLINA KEEN DO ([email or web address]) on 07/26/24 at 16:17. Electronically submitted by Tani Crespo ([email or web address]). I personally scribed for KAROLINA KEEN DO ([email or web address]) on 07/26/24 at 19:16. Electronically submitted by Tani Crespo ([email or web address]). KAROLINA KEEN DO Jul 26, 2024 16:09
[2024-07-26 16:56] LABS: Basophils # (auto) 0 10 ^3/uL (0-0.2); Basophils % (auto) 0.4 % (0.0-2.0); Eosinophils # (auto) 0.1 10 ^3/uL (0-0.8); Eosinophils % (auto) 1.1 % (0.0-7.0); Lymphocytes # (auto) 0.9 10 ^3/uL (0.4-5.4); Lymphocytes % (auto) 13.6 % (10.0-50.0); Mean Corpuscular Hemoglobin 28.3 pg (28.0-32.0); Mean Corpuscular Hgb Conc. 33.3 g/dL (32.0-36.0); Mean Corpuscular Volume 85.1 fL (80.0-100.0); Monocytes # (auto) 0.5 10 ^3/uL (0-1.3); Monocytes % (auto) 7.5 % (0.0-12.0); Neutrophils % (auto) 77.4 % (37.0-80.0); Nucleated Red Blood Cells % 0.1 %; Platelet Count (auto) 306 10^3/uL (140-450); Red Blood Cells 3.52 10^6/uL (4.0-5.20); Red Cell Distribution Width 15.4 % (11.8-14.3); White Blood Cell 6.4 10^3/uL (4.4-10.8)
--- NOTE | 2024-07-26 17:05 | DVH ---
Exam: CT CT AB PEL WO CON-NO ORAL OR IV History: flank pain Comparison Study: CT CT AB PEL WO CON-NO ORAL OR IV on DOS: 02/01/24 Technique: Multidetector spiral CT of the abdomen was performed from lung bases to pubic symphysis. Imaging was performed without IV contrast. Axial, coronal and sagittal multiplanar reformats were ob tained from the axial data set by the technologist. Radiation Dose : 1. Abdomen/Pelvis: CTDIvol 5.07 mGy, DLP 234.38 mGy*cm. Findings: Evaluation of solid organs is limited due to lack of intravenous contrast use. Lung Bases: Liver: The liver is normal Gallbladder and Biliary Tree: Unremarkable Spleen: Unremarkable Pancreas: The pancreas is grossly normal in appearance. Adrenal Glands: Unremarkable Kidneys: Left external internal nephroureteral stent is well positioned and unchanged from the prior study. No hydronephrosis. 2.4 cm right renal mass arising from the superior pole of the right kidney, coronal image 52, series 601. Ultrasound could be performed for further assessment as this mass is n ot of fluid density. Bladder: Grossly unremarkable for degree of distention. Bowel: The stomach is grossly normal in appearance. Small bowel and colon are normal in caliber and d istribution. The appendix is not visualized; however, no secondary findings of acute appendicitis id entified. Ascites: Absent. Resolution of the previously noted ascites. Lymphadenopathy: No mesenteric, retroperitoneal or periportal lymphadenopathy. Abdominal Wall and Mesentery: Unremarkable. Vasculature: The visualized abdominal aorta is normal in size and caliber. Evaluation of abdominal a nd pelvic vessels is limited due to lack of intravenous contrast. Pelvic Organs: Stable probable right adnexal dermoid. Musculoskeletal: No aggressive focal bony lesions, acute fractures or dislocation. IMPRESSION: 1. Resolution of previously noted right pleural effusion and ascites when compared to the previous st udyStable Positioning of the left stent. Stable right-sided pelvic dermoid. Radiation optimization: All CT scans at this facility use at least one of these dose optimization katius[place] hniques: automated exposure control mA and/or kV adjustment per patient size (includes targeted exam s where dose is matched to clinical indication) or iterative reconstruction.
[2024-07-26 17:14] LABS: Alanine Aminotransferase 10 U/L (7-40); Albumin 4.4 g/dL (3.2-4.8); Alkaline Phosphatase 115 U/L (46-116); Anion Gap 10 (5-15); Calcium 10.2 mg/dL (8.7-10.4); Carbon Dioxide 25 mmol/L (20-31); Chloride 103 mmol/L (98-107); Sodium 138 mmol/L (136-145); Total Protein 7.6 g/dL (5.7-8.2)
[2024-07-26 17:15] LABS: Bilirubin, Total 0.6 mg/dL (0.2-1.0)
[2024-07-26 17:16] LABS: Aspartate Aminotransferase 12 U/L (13-40); Blood Urea Nitrogen 37 mg/dL (9-23); Glucose 140 mg/dL (74-106); Potassium 3.2 mmol/L (3.5-5.1)
[2024-07-26 20:00] VITALS: PULSE 103; RESP 18; O2SAT 99
[2024-07-26] MEDS: fentaNYL CITRATE 100 MCG/2 ML VL IV ONE ×2 (20:05→23:09)
[2024-07-26] MEDS: cefTRIAXone 1GM/50ML D5W 50 ML IV ONE (21:16)
[2024-07-26 22:45] LABS: Urine Bacteria MOD /hpf (None Seen); Urine Blood 3+ /uL (Negative); Urine Budding Yeast MODERATE /hpf (None Seen); Urine Clarity Ex.Turbid (Clear); Urine Color Yellow (Yellow); Urine Mucus FEW (None Seen); Urine Protein, UAD 1+ (Negative); Urine Specific Gravity 1.014 (1.001-1.035); Urine Squamous Epithelial Cell None Seen /hpf (<5); Urine Urobilinogen Normal (Negative); Urine WBC 341 /HPF (0-5); Urine WBC Clumps PRESENT /hpf (None Seen)
[2024-07-27] VITALS (9 sets, daily range): BP systolic 117–155; BP diastolic 70–106; PULSE 85–111; RESP 16–20; TEMP 98.1–98.8; O2SAT 96–100
[2024-07-27] MEDS ORDERED: NITROGLYCERIN 0.4 MG SL TAB SL PRN (01:00)
[2024-07-27] MEDS ORDERED: DOCUSATE SOD 100 MG CAP PO PRN (01:00)
[2024-07-27] MEDS ORDERED: MORPHINE SULFATE INJ 2 MG/ml SYRG IV PRN (01:00)
[2024-07-27] MEDS ORDERED: ONDANSETRON HCL 4 MG/2 ML VIAL IV PRN (01:00)
[2024-07-27] MEDS: FLUCONAZOLE 100 MG TAB PO ONE (01:18)
--- NOTE | 2024-07-27 02:27 | DVHHP2 ---
CLIFF WARREN [employer] 07/27/24 0227: History of Present Illness Reason for Visit: Malfunctioning PNT History of Present Illness 69-year-old female with past medical history of CHF Daily Dobutamine trip, COPD, CKD, A fib Presents with complaints of left side of flank pain. Pain is 10 out of 10 continuous. Patient had Left PNT replaced two months ago. However stopped working two days ago. Collection bag is Occluded with sedimentation. Patient's daughter is a nurse and Complete dressing changes On a daily basis. She reported malodorous Purulent Discharge. Catheter insertion site is also warm to palpation. At this time patient has fevers, chills, chest pain, shortness of breath, chest pain,Nausea, vomiting Cardiovascular: CHF, HTN, hyperipidemia Pulmonary: COPD Renal/: Chronic renal insuff Smoke: No ALCOHOL: none Drugs: None Lives: with Family Review of Systems Constitutional: No: Fever, Chills, Sweats, Weakness, Malaise, Other Eyes: No: Pain, Vision change, Conjunctivae inflammation, Eyelid inflammation, Other, Redness ENT: No: Ear pain, Ear discharge, Nose pain, Nose discharge, Nose congestion, Mouth pain, Mouth swelling, Throat pain, Throat swelling, Other Respiratory: No: Cough, Dry, Shortness of breath, SOB with excertion, Wheezing, Hemoptysis, Pleuritic Pain, Sputum, Wheezing, Other Cardiovascular: No: Chest Pain, Palpitations, Orthopnea, Paroxysmal Noc. Dyspnea, Edema, Lt Headedness, Other Gastrointestinal: No: Nausea, Vomiting, Abdominal Pain, Diarrhea, Constipation, Melena, Hematochezia, Other Genitourinary: No Dysuria, No Frequency, No Incontinence, No Hematuria; Retention, Other (PNT site pain.) Musculoskeletal: No: other, neck pain, shoulder pain, arm pain, back pain, hand pain, leg pain, foot pain Skin: No: Rash, Lesions, Jaundice, Bruising, Other Neurological: No: Weakness, Numbness, Incoordination, Change in speech, Confusion, Seizures, Other Allergies: Coded Allergies: NO KNOWN ALLERGIES (Unverified , 03/06/24) Medications Current Medications Medications Dose Ordered Sig/Mic Route Start Time Stop Time Status Last Admin Dose Admin Docusate Sodium 100 mg BIDPRN PRN PO 07/27/24 01:00 Acetaminophen 650 mg Q6HP PRN PO 3/22/25 01:00 Acetaminophen/ Hydrocodone Bitart 1 tab Q6HPRN PRN PO 07/27/24 01:00 Ondansetron HCl 4 mg Q4HP PRN IV 07/27/24 01:00 Morphine Sulfate 2 mg Q4HPRN PRN IV 07/27/24 01:00 Nitroglycerin 0.4 mg Q5MINP PRN SL 07/27/24 01:00 Morphine Sulfate 2 mg Q30M PRN IV 07/27/24 01:00 Ceftriaxone Sodium 50 ml @ 100 mls/hr DAILY@2100 IV 07/27/24 21:00 Exam Vital Signs Vital Signs Date Time Temp Pulse Resp B/P (MAP) Pulse Ox O2 Delivery O2 Flow Rate FiO2 07/27/24 01:34 98.8 93 19 159/86 (110) 100 98.8 07/26/24 20:00 Room Air* 0 21 General Appearance: Alert, Oriented X3, Cooperative, mild distress HEENT: Atraumatic, PERRLA, EOMI Respiratory: Clear to auscultation, Normal air movement Cardiovascular: Regular rate, Normal S1, Normal S2 Abdominal: Normal bowel sounds, Soft, No tenderness, Other (PNT site warm to palpation. ) Extremities: No clubbing, No cyanosis, No edema Skin: No breakdown Neuro: Normal speech, Strength at 5/5 X4 ext Psych/Mental Status: Mental status NL, Mood NL Labs/Xrays Labs Test 07/26/24 16:40 07/26/24 00:00 Range/Units White Blood Count 6.4 4.4-10.8 10^3/uL Red Blood Count 3.52 L 4.0-5.20 10^6/uL Hemoglobin 10.0 L 12.2-16.2 g/dL Hematocrit 30.0 L 36.0-46.0 % Mean Corpuscular Volume 85.1 80.0-100.0 fL Mean Corpuscular Hemoglobin 28.3 28.0-32.0 pg Mean Corpuscular Hemoglobin Concent 33.3 32.0-36.0 g/dL Red Cell Distribution Width 15.4 H 11.8-14.3 % Platelet Count 306 140-450 10^3/uL Mean Platelet Volume 7.8 6.9-10.8 fL Neutrophils (%) (Auto) 77.4 37.0-80.0 % Lymphocytes (%) (Auto) 13.6 10.0-50.0 % Monocytes (%) (Auto) 7.5 0.0-12.0 % Eosinophils (%) (Auto) 1.1 0.0-7.0 % Basophils (%) (Auto) 0.4 0.0-2.0 % Neutrophils # (Auto) 5.0 1.6-8.6 10 ^3/uL Lymphocytes # (Auto) 0.9 0.4-5.4 10 ^3/uL Monocytes # (Auto) 0.5 0-1.3 10 ^3/uL Eosinophils # (Auto) 0.1 0-0.8 10 ^3/uL Basophils # (Auto) 0 0-0.2 10 ^3/uL Nucleated Red Blood Cells 0.1 % Sodium Level 138 136-145 mmol/L Potassium Level 3.2 L 3.5-5.1 mmol/L Chloride Level 103 98-107 mmol/L Carbon Dioxide Level 25 20-31 mmol/L Anion Gap 10 5-15 Blood Urea Nitrogen 37 H 9-23 mg/dL Creatinine 1.95 H 0.550-1.02 mg/dL Glomerular Filtration Rate Calc 27 >90 mL/min BUN/Creatinine Ratio 19.0 10.0-20.0 Serum Glucose 140 H 74-106 mg/dL Lactic Acid Level 1.8 0.4-2.0 mmol/L Calcium Level 10.2 8.7-10.4 mg/dL Total Bilirubin 0.6 0.2-1.0 mg/dL Aspartate Amino Transferase (AST) 12 L 13-40 U/L Alanine Aminotransferase (ALT) 10 7-40 U/L Alkaline Phosphatase 115 46-116 U/L B-Type Natriuretic Peptide 231.19 0-100 pg/mL Total Protein 7.6 5.7-8.2 g/dL Albumin 4.4 3.2-4.8 g/dL Urine Color Yellow Yellow Urine Clarity Ex.turbid Clear Urine pH 6.0 5.0-9.0 Urine Specific [place] 1.014 1.001-1.035 Urine Protein 1+ H Negative Urine Ketones Trace Negative Urine Blood 3+ H Negative /uL Urine Nitrite Negative Negative Urine Bilirubin Negative Negative Urine Urobilinogen Normal Negative mg/dL Urine Leukocyte Esterase 3+ Negative /uL Urine RBC 14 0 - 4 /hpf Urine WBC Clumps Present None Seen /hpf Urine Microscopic WBC 341 H 0-5 /HPF Urine Squamous Epithelial Cells None seen <5 /hpf Urine Bacteria Mod H None Seen /hpf Urine Mucus Few None Seen Urine Yeast (Budding) Moderate None Seen /hpf Urine Glucose Normal Normal mg/dL Assessment/Plan Assessment/Plan Malfunctioning left PNT UTI Hx CHF Hx Afib Hx CKD Dx Admit telemetry Urology consult. Culture from catheter site. As needed supplemental O2 to keep O2 saturation greater than 92%. Bronchodilators as needed. IV ABX Continue home medications. GI ppx protonix / DVT ppx scd. On oral anti-coagulation Plan discussed with: Patient, Daughter My Orders Orders - CLIFF WARREN NP Procedure Category Date Status Time Admit ADMIT 07/27/24 Transmitted 00:58 Code Status CODE 07/27/24 Transmitted 00:58 Vital Signs LISA 07/27/24 In Process 00:58 Review Orders With LISA 07/27/24 In Process Adm. 00:58 Encourage Activity As LISA 07/27/24 In Process Tolerate 00:58 Consistent DIET 07/27/24 Transmitted Carb(Ccho)Diabetes Breakfast Oxygen By Face Mask RT 07/27/24 Transmitted 00:58 Docusate Sodium PHA 07/27/24 In Process Capsule (Colace 01:00 Acetaminophen Tablet PHA 07/27/24 In Process (Tylenol Tablet) 01:00 Notify Of Changes LISA 07/27/24 In Process From Base 00:58 Advance Directive LISA 07/27/24 In Process 00:58 Basic Metabolic Panel LAB 07/27/24 Logged 05:00 Basic Metabolic Panel LAB 07/28/24 Verified 05:00 Basic Metabolic Panel LAB 07/29/24 Verified 05:00 Complete Blood Count LAB 07/27/24 Logged 05:00 Complete Blood Count LAB 07/28/24 Verified 05:00 Complete Blood Count LAB 07/29/24 Verified 05:00 Complete Blood Count LAB 07/30/24 Verified 05:00 Urine Bacterial REFUGIO 07/27/24 Logged Culture 00:58 Patient Condition ORDERS 07/27/24 Transmitted 00:58 Allergies LISA 07/27/24 In Process 00:58 Hydrocodone-Acet PHA 07/27/24 In Process 5/325mg Tab ([place] 01:00 Ondansetron Hcl PHA 07/27/24 In Process (Zofran) 01:00 Morphine Sulfate PHA 07/27/24 In Process Injection 01:00 Sequential LISA 07/27/24 In Process Compression Device Nitroglycerin PHA 07/27/24 In Process Sublingual (Ntrostat 01:00 Morphine Sulfate PHA 07/27/24 In Process Injection 01:00 Stat Ekg For Chest LISA 07/27/24 In Process Pain 00:58 Notify Of Changes LISA 07/27/24 In Process From Base 00:58 Webmethods Architect For LISA 07/27/24 In Process 24 Hours 00:58 Emergency Dysrhythmia LISA 07/27/24 In Process Protocol 00:58 Rhythm Strips Once LISA 07/27/24 In Process Every Shift 00:58 Oxygen By Nasal RT 07/27/24 Transmitted Cannula 00:58 Wound Culture W/ Gs REFUGIO 07/27/24 Logged 00:58 * Urology Consult CONS 07/27/24 Transmitted 00:58 Ceftriaxone 1gm/50ml PHA 07/27/24 In Process D5w (Rocephin) 21:00 Communication Order ORDERS 07/27/24 Transmitted 02:07 Date of Service: Jul 27, 2024 Billing Provider: KESHAV LUCIA MD Common Visit Codes: NOT BILLABLE KESHAV LUCIA MD 07/27/24 1721: Review of Systems Allergies: Coded Allergies: NO KNOWN ALLERGIES (Unverified , 03/06/24) Assessment/Plan Assessment/Plan Patient's chart is reviewed and discussed with the nurse practitioner. I agree with nurse practitioner's evaluation, documentation, assessment and care plan as outlined CLIFF WARREN NP Jul 27, 2024 02:27 KESHAV LUCIA MD Jul 27, 2024 17:21
[2024-07-27] MEDS: MORPHINE SULFATE INJ 2 MG/ml SYRG IV PRN (04:02)
[2024-07-27] MEDS: ACETAMINOPHEN 325 MG TAB PO PRN (04:10)
[2024-07-27] MEDS ORDERED: DOBU250I2 IV (04:24)
[2024-07-27] MEDS ORDERED: LEVO100T8 PO (04:24)
[2024-07-27] MEDS ORDERED: BUME2TAB5 PO (04:24)
[2024-07-27] MEDS ORDERED: TAMS0.4C39 PO (04:24)
[2024-07-27] MEDS ORDERED: ATOR-47 PO (04:24)
[2024-07-27 09:01] LABS: Basophils # (auto) 0 10 ^3/uL (0-0.2); Basophils % (auto) 0.6 % (0.0-2.0); Eosinophils # (auto) 0.1 10 ^3/uL (0-0.8); Eosinophils % (auto) 2.4 % (0.0-7.0); Hematocrit 29.2 % (36.0-46.0); Hemoglobin 9.7 g/dL (12.2-16.2); Lymphocytes # (auto) 1.1 10 ^3/uL (0.4-5.4); Lymphocytes % (auto) 18.4 % (10.0-50.0); Mean Corpuscular Hemoglobin 28.2 pg (28.0-32.0); Mean Corpuscular Hgb Conc. 33.1 g/dL (32.0-36.0); Mean Corpuscular Volume 85.3 fL (80.0-100.0); Monocytes # (auto) 0.8 10 ^3/uL (0-1.3); Monocytes % (auto) 13.7 % (0.0-12.0); Neutrophils # (auto) 3.7 10 ^3/uL (1.6-8.6); Neutrophils % (auto) 64.9 % (37.0-80.0); Platelet Count (auto) 282 10^3/uL (140-450); Red Blood Cells 3.42 10^6/uL (4.0-5.20); Red Cell Distribution Width 15.3 % (11.8-14.3); White Blood Cell 5.7 10^3/uL (4.4-10.8)
[2024-07-27 09:08] LABS: Chloride 104 mmol/L (98-107); Sodium 140 mmol/L (136-145)
[2024-07-27 09:09] LABS: Anion Gap 9 (5-15); Carbon Dioxide 27 mmol/L (20-31)
[2024-07-27 09:10] LABS: Calcium 10.4 mg/dL (8.7-10.4)
[2024-07-27 09:14] LABS: Glucose 95 mg/dL (74-106)
[2024-07-27 09:15] LABS: BUN/Creatinine Ratio 18.4 (10.0-20.0)
[2024-07-27 09:18] LABS: Blood Urea Nitrogen 32 mg/dL (9-23); Potassium 3.2 mmol/L (3.5-5.1)
--- NOTE | 2024-07-27 12:33 | DVHINCON2 ---
Date of service: Jul 27, 2024 Referring Physician Hospitalist Reason for Consultation Nephrostomy tube issue History of Present Illness Patient is known to have a left percutaneous nephrostomy tube originally placed in [place] early 2023. She was seen by me for hospital consultation in January of 2024. At that time, she was known to have cardiac ejection fraction of 13%. She was referred to [facility] for higher level care management. In April the nephrostomy tube was exchanged to a nephroureteral stent. She is also being followed by [facility]rology service. Current stones in the left kidney appears to be much less in size and it also appears to have been partially treated. She has an appointment with [facility] urology next month and plans to continue follow up care there. She is not a candidate for any surgical management at this facility because of her low cardiac ejection fraction. Past Medical History Severe cardiac deficiency Left renal stone Past Surgical History Left percutaneous nephrostomy tube Family History: Diabetes mellitus G8 MOTHER Allergies: Coded Allergies: NO KNOWN ALLERGIES (Unverified , 03/06/24) Home Meds Active Scripts Budesonide-Formoterol Fumarate (Breyna 160-4.5 Mcg/Act) 1 Aer Aer, 2 PUFF PO BID for 30 Days, #1 AER Prov:MELOYD FRIED NP 02/07/24 Ipratropium-Albuterol (COMBIVENT RESPIMAT) Respimat Aer, 1 PUFF PO QID PRN for 30 Days, #1 AER 2 Refills INHALE 1 PUFF BY MOUTH INTO THE LUNGS FOUR TIMES DAILY Prov:MELODY FRIED NP 02/07/24 Amiodarone HCl (Amiodarone HCl) 200 Mg Tab, 1 TAB PO DAILY for 30 Days, #30 TAB 3 Refills Prov:MELODY FRIED NP 02/07/24 Carvedilol (COREG) 3.125 Mg Tab, 3.125 MG PO Q12HR for 30 Days, #60 TAB Prov:MELODY FRIED NP 02/07/24 Apixaban Base (ELIQUIS) 2.5 Mg Tab, 2.5 MG PO BID, #60 TAB 5 Refills Prov:OMKAR HUTCHISON MD 12/03/23 Hydralazine HCl (Hydralazine HCl) 25 Mg Tab, 25 MG PO DAILY, #30 TAB 5 Refills Prov:OMKAR HUTCHISON MD 12/03/23 Lorazepam (Ativan) 0.5 Mg Tab, 1 TAB PO Q6HPRN PRN, #30 TAB Prov:OMKAR HUTCHISON MD 12/03/23 Isosorbide Mononitrate (Isosorbide Mononitrate Er) 60 Mg Tab, 1 TAB PO DAILY, #90 TAB 3 Refills Prov:OMKAR HUTCHISON MD 12/03/23 Reported Medications Dobutamine HCl (Dobutamine HCl) 250 Mg/20 Ml Inj, 250 MG IV, INJ 07/27/24 Atorvastatin Calcium (ATORVASTATIN CALCIUM) 80 Mg Tab, 1 TAB PO DAILY, #30 TAB 5 Refills 07/27/24 Tamsulosin Hcl (Tamsulosin Hcl) 0.4 Mg Cap, 0.4 MG PO QAM for 30 Days, MG 07/27/24 Bumetanide (Bumetanide) 2 Mg Tab, 2 MG PO DAILY for 30 Days, MG 07/27/24 Levothyroxine Sodium (Levothyroxine Sodium) 100 Mcg Tab, 100 MCG PO QAM for 30 Days, MCG 07/27/24 Potassium Chloride (POTASSIUM CHLORIDE CR) 10 Meq Tb, 1 TAB PO DAILY 01/31/24 Midodrine HCl (Midodrine Hydrochloride) 10 Mg Tab, 10 MG PO TID 01/31/24 Pantoprazole Sodium Sesquihydr (Protonix) 40 Mg Tab, 40 MG PO DAILY 01/31/24 Furosemide (Furosemide) 40 Mg Tab, 40 MG PO DAILY 01/31/24 Sodium Bicarbonate (Sodium Bicarbonate) 650 Mg Tab, 1 TAB PO TID 01/30/24 Current Medications Current Medications Medications (Trade) Dose Ordered Sig/Mic Route PRN Reason Start Time Stop Time Status Last Admin Docusate Sodium (Colace Capsule) 100 mg BIDPRN PRN PO FOR CONSTIPATION 07/27/24 01:00 Acetaminophen (Tylenol Tablet) 650 mg Q6HP PRN PO PAIN SCALE 1-3 OR TEMP>100.4 07/27/24 01:00 07/27/24 04:10 Acetaminophen/ Hydrocodone Bitart ([place] 5/325MG Tab) 1 tab Q6HPRN PRN PO MODERATE PAIN (4-6 PAIN SCALE) 07/27/24 01:00 Ondansetron HCl (Zofran) 4 mg Q4HP PRN IV NAUSEA / VOMITING 07/27/24 01:00 Morphine Sulfate 2 mg Q4HPRN PRN IV SEVERE PAIN (7-10 PAIN SCALE) 07/27/24 01:00 07/27/24 09:18 Nitroglycerin (Ntrostat Sublingual) 0.4 mg Q5MINP PRN SL FOR CHEST PAIN 07/27/24 01:00 Morphine Sulfate 2 mg Q30M PRN IV FOR CHEST PAIN 07/27/24 01:00 Ceftriaxone Sodium 50 ml @ 100 mls/hr DAILY@2100 IV 07/27/24 21:00 Review of Systems Left flank pain Vital Signs Vital Signs Date Time Temp Pulse Resp B/P (MAP) Pulse Ox O2 Delivery O2 Flow Rate FiO2 07/27/24 09:18 98 18 145/92 07/27/24 08:43 98.1 100 98.1 07/27/24 08:00 Nasal Cannula* 2 28 Physical Exam Left percutaneous nephroureteral stent is in good position per CT scan report. Labs/Diagnostic Data Labs Test 07/27/24 05:42 07/26/24 16:40 07/26/24 00:00 Range/Units White Blood Count 5.7 4.4-10.8 10^3/uL Red Blood Count 3.42 L 4.0-5.20 10^6/uL Hemoglobin 9.7 L 12.2-16.2 g/dL Hematocrit 29.2 L 36.0-46.0 % Mean Corpuscular Volume 85.3 80.0-100.0 fL Mean Corpuscular Hemoglobin 28.2 28.0-32.0 pg Mean Corpuscular Hemoglobin Concent 33.1 32.0-36.0 g/dL Red Cell Distribution Width 15.3 H 11.8-14.3 % Platelet Count 282 140-450 10^3/uL Mean Platelet Volume 7.8 6.9-10.8 fL Neutrophils (%) (Auto) 64.9 37.0-80.0 % Lymphocytes (%) (Auto) 18.4 10.0-50.0 % Monocytes (%) (Auto) 13.7 H 0.0-12.0 % Eosinophils (%) (Auto) 2.4 0.0-7.0 % Basophils (%) (Auto) 0.6 0.0-2.0 % Neutrophils # (Auto) 3.7 1.6-8.6 10 ^3/uL Lymphocytes # (Auto) 1.1 0.4-5.4 10 ^3/uL Monocytes # (Auto) 0.8 0-1.3 10 ^3/uL Eosinophils # (Auto) 0.1 0-0.8 10 ^3/uL Basophils # (Auto) 0 0-0.2 10 ^3/uL Nucleated Red Blood Cells 0.0 % Sodium Level 140 136-145 mmol/L Potassium Level 3.2 L 3.5-5.1 mmol/L Chloride Level 104 98-107 mmol/L Carbon Dioxide Level 27 20-31 mmol/L Anion Gap 9 5-15 Blood Urea Nitrogen 32 H 9-23 mg/dL Creatinine 1.74 H 0.550-1.02 mg/dL Glomerular Filtration Rate Calc 31 >90 mL/min BUN/Creatinine Ratio 18.4 10.0-20.0 Serum Glucose 95 74-106 mg/dL Calcium Level 10.4 8.7-10.4 mg/dL Lactic Acid Level 1.8 0.4-2.0 mmol/L Total Bilirubin 0.6 0.2-1.0 mg/dL Aspartate Amino Transferase (AST) 12 L 13-40 U/L Alanine Aminotransferase (ALT) 10 7-40 U/L Alkaline Phosphatase 115 46-116 U/L B-Type Natriuretic Peptide 231.19 0-100 pg/mL Total Protein 7.6 5.7-8.2 g/dL Albumin 4.4 3.2-4.8 g/dL Urine Color Yellow Yellow Urine Clarity Ex.turbid Clear Urine pH 6.0 5.0-9.0 Urine Specific [place] 1.014 1.001-1.035 Urine Protein 1+ H Negative Urine Ketones Trace Negative Urine Blood 3+ H Negative /uL Urine Nitrite Negative Negative Urine Bilirubin Negative Negative Urine Urobilinogen Normal Negative mg/dL Urine Leukocyte Esterase 3+ Negative /uL Urine RBC 14 0 - 4 /hpf Urine WBC Clumps Present None Seen /hpf Urine Microscopic WBC 341 H 0-5 /HPF Urine Squamous Epithelial Cells None seen <5 /hpf Urine Bacteria Mod H None Seen /hpf Urine Mucus Few None Seen Urine Yeast (Budding) Moderate None Seen /hpf Urine Glucose Normal Normal mg/dL PATIENT: CHRISSY MONTOYA ACCT: [id number] UNIT: [id number] : 1955 LOC: ER ROOM / BED: / AGE / SEX: 69 / F ADM STATUS: REG ER SERVICE 1553 ORDERING PHYSICIAN: KAROLINA KEEN DO PROCEDURE(s): ABPL - CT AB PEL WO CON-NO ORAL OR IV REASON: flank pain ORDER NUMBER(s): [id number], ACCESSION NUMBER(s): [id number] ADDENDUM ADDENDUM # 1 The left external internal nephro ureteral stent is well positioned and extends from the kidney to the bladder, unchanged from the prior exam. 2.4 cm right renal mass arising from the superior pole of the right kidney, ultrasound recommended. Impression: Left-sided nephro ureteral stent is well positioned and unchanged in position from the prior CT study. ORIGINAL REPORT Exam: CT CT AB PEL WO CON-NO ORAL OR IV History: flank pain Comparison Study: CT CT AB PEL WO CON-NO ORAL OR IV on DOS: 02/01/24 Technique: Multidetector spiral CT of the abdomen was performed from lung bases to pubic symphysis. Imaging was performed without IV contrast. Axial, coronal and sagittal multiplanar reformats were obtained from the axial data set by the technologist. Radiation Dose : 1. Abdomen/Pelvis: CTDIvol 5.07 mGy, DLP 234.38 mGy*cm. Findings: Evaluation of solid organs is limited due to lack of intravenous contrast use. Lung Bases: Liver: The liver is normal Gallbladder and Biliary Tree: Unremarkable Spleen: Unremarkable Pancreas: The pancreas is grossly normal in appearance. Adrenal Glands: Unremarkable Kidneys: Left external internal nephroureteral stent is well positioned and unchanged from the prior study. No hydronephrosis. 2.4 cm right renal mass arising from the superior pole of the right kidney, coronal image 52, series 601. Ultrasound could be performed for further assessment as this mass is not of fluid density. Bladder: Grossly unremarkable for degree of distention. Bowel: The stomach is grossly normal in appearance. Small bowel and colon are normal in caliber and distribution. The appendix is not visualized; however, no secondary findings of acute appendicitis identified. Ascites: Absent. Resolution of the previously noted ascites. Lymphadenopathy: No mesenteric, retroperitoneal or periportal lymphadenopathy. Abdominal Wall and Mesentery: Unremarkable. Vasculature: The visualized abdominal aorta is normal in size and caliber. Evaluation of abdominal and pelvic vessels is limited due to lack of intravenous contrast. Pelvic Organs: Stable probable right adnexal dermoid. Musculoskeletal: No aggressive focal bony lesions, acute fractures or dislocat ion. IMPRESSION: 1. Resolution of previously noted right pleural effusion and ascites when compared to the previous studyStable Positioning of the left stent. Stable right-sided pelvic dermoid. Radiation optimization: All CT scans at this facility use at least one of these dose optimization techniques: automated exposure control mA and/or kV adjustment per patient size (includes targeted exams where dose is matched to clinical indication) or iterative reconstruction. ATED BY: KARLA MARTÍNEZ MD DICTATED DATE/TIME: 07/26/241742 SIGNED BY: KARLA MARTÍNEZ MD SIGNED DATE/TIME: 07/26/241742 CC: Exam: CT CT AB PEL WO CON-NO ORAL OR IV History: flank pain Comparison Study: CT CT AB PEL WO CON-NO ORAL OR IV on DOS: 02/01/24 Technique: Multidetector spiral CT of the abdomen was performed from lung bases to pubic symphysis. Imaging was performed without IV contrast. Axial, coronal and sagittal multiplanar reformats were obtained from the axial data set by the technologist. Radiation Dose : 1. Abdomen/Pelvis: CTDIvol 5.07 mGy, DLP 234.38 mGy*cm. Findings: Evaluation of solid organs is limited due to lack of intravenous contrast use. Lung Bases: Liver: The liver is normal Gallbladder and Biliary Tree: Unremarkable Spleen: Unremarkable Pancreas: The pancreas is grossly normal in appearance. Adrenal Glands: Unremarkable Kidneys: Left external internal nephroureteral stent is well positioned and unchanged from the prior study. No hydronephrosis. 2.4 cm right renal mass arising from the superior pole of the right kidney, coronal image 52, series 601. Ultrasound could be performed for further assessment as this mass is not of fluid density. Bladder: Grossly unremarkable for degree of distention. Bowel: The stomach is grossly normal in appearance. Small bowel and colon are normal in caliber and distribution. The appendix is not visualized; however, no secondary findings of acute appendicitis identified. Ascites: Absent. Resolution of the previously noted ascites. Lymphadenopathy: No mesenteric, retroperitoneal or periportal lymphadenopathy. Abdominal Wall and Mesentery: Unremarkable. Vasculature: The visualized abdominal aorta is normal in size and caliber. Evaluation of abdominal and pelvic vessels is limited due to lack of intravenous contrast. Pelvic Organs: Stable probable right adnexal dermoid. Musculoskeletal: No aggressive focal bony lesions, acute fractures or dis location. IMPRESSION: 1. Resolution of previously noted right pleural effusion and ascites when compared to the previous studyStable Positioning of the left stent. Stable right-sided pelvic dermoid. Radiation optimization: All CT scans at this facility use at least one of these dose optimization techniques: automated exposure control mA and/or kV adjustment per patient size (includes targeted exams where dose is matched to clinical indication) or iterative reconstruction. ATED BY: KARLA MARTÍNEZ MD DICTATED DATE/TIME: 07/26/241702 SIGNED BY: KARLA MARTÍNEZ MD SIGNED DATE/TIME: 07/26/241702 CC: Assessment Left nephrolithiasis Left percutaneous nephroureteral stent Severe cardiac anomaly with low ejection fraction of 13% Plan/Recommendation Patient is best served by management at higher level care Plan discussed with: Patient, Other EDY EDUARDO MD Jul 27, 2024 12:32
[2024-07-27] MEDS ORDERED: DAPA1TAB4 PO (13:45)
[2024-07-27] MEDS ORDERED: SENN-58 PO (13:45)
[2024-07-27] MEDS ORDERED: IPRATROPIUM-ALBUTEROL 20mCg/100mCg INHALER IN PRN (16:00)
[2024-07-27] MEDS ORDERED: LORazepam 0.5 MG TAB PO PRN (16:00)
[2024-07-27] MEDS: MIDODRINE HCL 10 MG TAB PO SCH (17:52)
--- NOTE | 2024-07-27 19:46 | DVH ---
INDICATION: Eval for right renal mass/left ureteral nephrostomy tube jose TECHNIQUE: Multiple real-time sonographic images of the kidneys and bladder were obtained. COMPARISON: US KIDNEY on DOS: 02/01/24, CT 07/26/24 FINDINGS: The right kidney measures 9.8 cm in length. The right renal echogenicity, contour and cortical thickn ess are within normal limits. No hydronephrosis or large masses/calculi are seen. 2.4 cm simple cyst noted at the right upper pole, which could correlate with the previously seen lesion on CT. The left kidney measures 7.5 cm in length. The left renal echogenicity, contour, and cortical thickne ss are within normal limits. Nephrostomy tube is partially visualized. No hydronephrosis or large mas ses/calculi are seen. Stent is seen in the bladder. Possible debris is noted within the bladder. Prevoid volume is 35 cc. IMPRESSION: 1. 2.4 cm simple cyst noted at the right upper pole, which could correlate with the previously seen l esion on CT. 2. No hydronephrosis. 3. Debris noted within the bladder, could be seen with cystitis in the appropriate clinical setting.
[2024-07-27] MEDS: MEROPENEM 500MG IVPB 50 ML IV SCH (20:57)
[2024-07-27] MEDS: ATORVASTATIN 20 MG TAB PO SCH (20:57)
[2024-07-27] MEDS: SENNA 8.6 MG TAB PO SCH (20:58)
[2024-07-27] MEDS: CARVEDILOL 3.125 MG TAB PO SCH (20:58)
[2024-07-27] MEDS ORDERED: cefTRIAXone 1GM/50ML D5W 50 ML IV SCH (21:00)
[2024-07-28] VITALS (8 sets, daily range): BP systolic 94–145; BP diastolic 60–101; PULSE 84–120; RESP 15–18; TEMP 98.3–99; O2SAT 99–100
[2024-07-28 05:30] LABS: Basophils # (auto) 0 10 ^3/uL (0-0.2); Basophils % (auto) 0.3 % (0.0-2.0); Eosinophils # (auto) 0.2 10 ^3/uL (0-0.8); Hematocrit 26.9 % (36.0-46.0); Hemoglobin 9.3 g/dL (12.2-16.2); Lymphocytes # (auto) 0.8 10 ^3/uL (0.4-5.4); Lymphocytes % (auto) 12.5 % (10.0-50.0); Mean Corpuscular Hgb Conc. 34.4 g/dL (32.0-36.0); Mean Corpuscular Volume 84.4 fL (80.0-100.0); Monocytes # (auto) 0.8 10 ^3/uL (0-1.3); Neutrophils # (auto) 4.6 10 ^3/uL (1.6-8.6); Neutrophils % (auto) 72.2 % (37.0-80.0); Nucleated Red Blood Cells % 0.1 %; Platelet Count (auto) 285 10^3/uL (140-450); Red Blood Cells 3.19 10^6/uL (4.0-5.20); White Blood Cell 6.3 10^3/uL (4.4-10.8)
[2024-07-28 05:38] LABS: Chloride 103 mmol/L (98-107); Potassium 3.6 mmol/L (3.5-5.1); Sodium 139 mmol/L (136-145)
[2024-07-28 05:39] LABS: Anion Gap 12 (5-15); Calcium 10.1 mg/dL (8.7-10.4); Carbon Dioxide 24 mmol/L (20-31)
[2024-07-28 05:44] LABS: BUN/Creatinine Ratio 17.6 (10.0-20.0); Glucose 90 mg/dL (74-106)
[2024-07-28 05:45] LABS: Blood Urea Nitrogen 27 mg/dL (9-23)
[2024-07-28] MEDS: LEVOTHYROXINE SODIUM 100 MCG TAB PO SCH (06:11)
[2024-07-28] MEDS: ISOSORBIDE MONONITRATE ER 60 MG TAB PO SCH (10:33)
[2024-07-28] MEDS: PANTOPRAZOLE 40 MG TAB PO SCH (10:33)
[2024-07-28] MEDS: AMIODARONE HCL 200 MG TAB PO SCH (10:34)
--- NOTE | 2024-07-28 13:44 | DVHPN2 ---
Progress Note - Dictate Date Seen: Jul 28, 2024 Medical Necessity Reason Pt with a Central, PICC or Fol: No Subjective Clinically stable. No complaints of chest pain abdominal pain or any other complaints. Patient apparently had a nonsustained seven beats of V-tach however asymptomatic. Patient is already on amiodarone Coreg and dobutamine drip with a known congestive cardiomyopathy vital signs Vital Sign Date Time Temp Pulse Resp B/P (MAP) Pulse Ox O2 Delivery O2 Flow Rate FiO2 07/28/24 12:34 98.3 84 18 94/60 (71) 100 98.3 07/28/24 08:00 Nasal Cannula* 2 28 Total Intake and Output 07/27/24 07/27/24 07/28/24 15:00 23:00 07:00 Intake Total 210 ml 550 ml Balance 210 ml 550 ml medications Current Medications Medications Dose Ordered Sig/Mic Route Start Time Stop Time Status Last Admin Dose Admin Docusate Sodium 100 mg BIDPRN PRN PO 07/27/24 01:00 Acetaminophen 650 mg Q6HP PRN PO 07/27/24 01:00 07/27/24 14:17 650 MG Acetaminophen/ Hydrocodone Bitart 1 tab Q6HPRN PRN PO 07/27/24 01:00 Ondansetron HCl 4 mg Q4HP PRN IV 07/27/24 01:00 Morphine Sulfate 2 mg Q4HPRN PRN IV 07/27/24 01:00 07/28/24 10:58 2 MG Nitroglycerin 0.4 mg Q5MINP PRN SL 07/27/24 01:00 Morphine Sulfate 2 mg Q30M PRN IV 07/27/24 01:00 Amiodarone HCl 200 mg DAILY PO 07/28/24 10:00 07/28/24 10:34 200 MG Carvedilol 3.125 mg Q12HR PO 07/27/24 22:00 07/28/24 10:33 3.125 MG Isosorbide Mononitrate 60 mg DAILY PO 07/28/24 10:00 07/28/24 10:33 60 MG Levothyroxine Sodium 100 mcg QAM PO 07/28/24 07:00 07/28/24 06:11 100 MCG Lorazepam 0.5 mg Q6HPRN PRN PO 07/27/24 16:00 Midodrine 10 mg TID@0600,1200,1800 PO 07/27/24 18:00 07/28/24 13:15 10 MG Pantoprazole Sodium 40 mg DAILY PO 07/28/24 10:00 07/28/24 10:33 40 MG Sennosides 8.6 mg BID PO 07/27/24 22:00 07/28/24 10:33 8.6 MG Atorvastatin Calcium 80 mg HS PO 07/27/24 22:00 07/27/24 20:57 80 MG Meropenem 50 ml @ 17 mls/hr Q12HR IV 07/27/24 22:00 07/28/24 10:31 17 MLS/HR objective Alert awake oriented x3. HEENT neck supple no JVD. Heart regular rate and rhythm S1-S2. Lungs without rales wheezes. Abdomen soft nontender positive bowel sounds. Extremities no edema. Left nephrostomy tube without any significant drainage. laboratory and microbiology Laboratory Tests 07/28/24 05:05 Test 07/28/24 05:05 Range/Units Serum Glucose 90 74-106 mg/dL Assessment/Plan Patient clinically stable. Therefore continue current antibiotics and cardiac medications as he is on. Follow echocardiogram report. I have discussed patient's CT report and nephrostomy with Dr. Edwin Barker yesterday afternoon over the phone. Patient apparently has a ureteral- vesicular/bladder stent placed by [facility]rology at [facility]. He is recommending to leave it alone and have outpatient follow up with [facility] urologist for further evaluation and possible removal. Given patient is voiding urine without any issues and kidney function being stable he does not feel that patient needs to have further urological evaluation or removal of the stent here at present. I have discussed this with the patient and she verbalized understanding of this and agrees with the current care plan. Her ultrasound of the kidneys did not show any renal mass but a renal cyst. Problems(with codes): (1) UTI (urinary tract infection) (2) Acute renal injury (3) Left flank pain (4) History of insertion of nephrostomy tube Plan discussed with: Patient, Other KESHAV LUCIA MD Jul 28, 2024 13:44
--- NOTE | 2024-07-28 14:15 | DVHSR ---
APPROVED REPORT EXAM: Two-dimensional and M-mode echocardiogram with Doppler and color Doppler. Blood Pressure: 117/75 mmHg INDICATION CHF RISK FACTORS Height: 4' 10", Weight: 99 DIMENSIONS LVDd5.7 (3.8-5.7cm)LA (2D)3.6 (1.9-4.0cm)Aortic Root2.9 (2.0-3.7cm) LVDs5.5 (2.5-4.0cm)LA (MM) (1.9-4.0cm)Aortic Cusp Exc1.5 (1.5-2.0cm) EF (%) 15.0 (55-70%)Rt. Atrium4.0 (1.9-4.0cm)Asc. Aorta cm IVSd1.1 (0.7-1.1cm)RV (D) (1.8-2.4cm) PWd1.0 (0.7-1.1cm) Mitral Valve MitralMitral Stenosis E wave0.80m/sMV Mean GR.mmHg A wave1.20m/sMV Peak GR.mmHg E/A ratio0.72D MVAcm2 Aortic Valve Aortic ValveAortic Stenosis V10.61m/Mary Ann Mean GR.4mmHg V21.30m/Mary Ann Peak GR.8mmHg LVOT Diameter2.2 (1.8-2.4cm)Doppler AVA1.78cm2 Pulmonic Valve V20.40m/s Tricuspid Valve TR Velocity2.74m/s [id number] Conclusion Technically good study. Sinus rhythm. Left ventricular enlargement. Left atrial enlargement. Mild aortic sclerosis. Mitral and tricuspid are structurally normal. Left ventricular systolic performance is diminished. EF is approximately 15-20% at best. Dopplers unremarkable. No pericardial effusion masses or vegetations.
[2024-07-29] VITALS (8 sets, daily range): BP systolic 107–144; BP diastolic 65–92; PULSE 78–91; RESP 18–20; TEMP 97.7–98.3; O2SAT 97–100
[2024-07-29 07:54] LABS: Basophils # (auto) 0 10 ^3/uL (0-0.2); Basophils % (auto) 0.6 % (0.0-2.0); Eosinophils # (auto) 0.3 10 ^3/uL (0-0.8); Eosinophils % (auto) 4.4 % (0.0-7.0); Hematocrit 29.8 % (36.0-46.0); Hemoglobin 9.7 g/dL (12.2-16.2); Lymphocytes # (auto) 1.1 10 ^3/uL (0.4-5.4); Lymphocytes % (auto) 19.3 % (10.0-50.0); Mean Corpuscular Hemoglobin 28.6 pg (28.0-32.0); Mean Corpuscular Hgb Conc. 32.7 g/dL (32.0-36.0); Mean Corpuscular Volume 87.4 fL (80.0-100.0); Monocytes # (auto) 0.8 10 ^3/uL (0-1.3); Monocytes % (auto) 13.3 % (0.0-12.0); Neutrophils # (auto) 3.6 10 ^3/uL (1.6-8.6); Neutrophils % (auto) 62.4 % (37.0-80.0); Nucleated Red Blood Cells % 0.2 %; Platelet Count (auto) 312 10^3/uL (140-450); Red Blood Cells 3.41 10^6/uL (4.0-5.20); Red Cell Distribution Width 14.8 % (11.8-14.3); White Blood Cell 5.8 10^3/uL (4.4-10.8)
[2024-07-29 08:09] LABS: INR 1.04 (0.9-1.15); Partial Thromboplastin Time 29.3 SEC (24.5-34.5)
[2024-07-29 08:18] LABS: Anion Gap 13 (5-15); Calcium 10.3 mg/dL (8.7-10.4); Carbon Dioxide 22 mmol/L (20-31); Chloride 103 mmol/L (98-107); Potassium 3.9 mmol/L (3.5-5.1); Sodium 138 mmol/L (136-145)
[2024-07-29 08:24] LABS: BUN/Creatinine Ratio 16.4 (10.0-20.0); Glucose 93 mg/dL (74-106)
[2024-07-29 08:26] LABS: Blood Urea Nitrogen 25 mg/dL (9-23)
[2024-07-29] MEDS: HYDROcodone-ACET 5/325MG TAB PO PRN (09:26)
--- NOTE | 2024-07-29 15:23 | DVHPN2 ---
Progress Note - Dictate Date Seen: Jul 29, 2024 Medical Necessity Reason Pt with a Central, PICC or Fol: No Subjective Clinically stable. No complaints of chest pain abdominal pain or any other complaints. Urine culture negative growth. Cardiac-aldana no further issues identified overnight. vital signs Vital Sign Date Time Temp Pulse Resp B/P (MAP) Pulse Ox O2 Delivery O2 Flow Rate FiO2 07/29/24 13:00 97.8 78 18 111/69 (83) 97 97.8 07/29/24 08:00 Room Air* 0 21 Total Intake and Output 07/28/24 07/28/24 07/29/24 15:00 23:00 07:00 Intake Total 260 ml 150 ml Balance 260 ml 150 ml medications Current Medications Medications Dose Ordered Sig/Mic Route Start Time Stop Time Status Last Admin Dose Admin Docusate Sodium 100 mg BIDPRN PRN PO 07/27/24 01:00 Acetaminophen 650 mg Q6HP PRN PO 07/27/24 01:00 07/28/24 22:04 650 MG Acetaminophen/ Hydrocodone Bitart 1 tab Q6HPRN PRN PO 07/27/24 01:00 07/29/24 09:26 1 TAB Ondansetron HCl 4 mg Q4HP PRN IV 07/27/24 01:00 Morphine Sulfate 2 mg Q4HPRN PRN IV 07/27/24 01:00 07/29/24 06:34 2 MG Nitroglycerin 0.4 mg Q5MINP PRN SL 07/27/24 01:00 Morphine Sulfate 2 mg Q30M PRN IV 07/27/24 01:00 Amiodarone HCl 200 mg DAILY PO 07/28/24 10:00 07/29/24 09:25 200 MG Carvedilol 3.125 mg Q12HR PO 07/27/24 22:00 07/29/24 09:25 3.125 MG Isosorbide Mononitrate 60 mg DAILY PO 07/28/24 10:00 07/29/24 11:03 60 MG Levothyroxine Sodium 100 mcg QAM PO 07/28/24 07:00 07/29/24 06:30 100 MCG Lorazepam 0.5 mg Q6HPRN PRN PO 07/27/24 16:00 Midodrine 10 mg TID@0600,1200,1800 PO 07/27/24 18:00 07/29/24 11:42 10 MG Pantoprazole Sodium 40 mg DAILY PO 07/28/24 10:00 07/29/24 09:25 40 MG Sennosides 8.6 mg BID PO 07/27/24 22:00 07/29/24 09:26 8.6 MG Atorvastatin Calcium 80 mg HS PO 07/27/24 22:00 07/28/24 22:03 80 MG Meropenem 50 ml @ 17 mls/hr Q12HR IV 07/27/24 22:00 07/29/24 09:27 17 MLS/HR objective Alert awake oriented x3. HEENT neck supple no JVD. Heart regular rate and rhythm S1-S2. Lungs without rales wheezes. Abdomen soft nontender positive bowel sounds. Extremities no edema. Left nephrostomy tube without any significant drainage. laboratory and microbiology Laboratory Tests 07/29/24 06:48 Test 07/29/24 06:48 Range/Units Serum Glucose 93 74-106 mg/dL Assessment/Plan Patient clinically stable. Apparently patient health insurance plan changed and she can not go back to [facility]. She wants her nephrostomy tube either replaced or removed here. Therefore Interventional Radiology consultation is obtained and he is evaluating the patient to see if she was a candidate for nephrostomy tube replacement. Meantime patient remains clinically stable therefore we will continue present management. Further clinical management per clinical course and recommendations from the radiologist. Discussed with the patient and nurse at bedside regarding care plan. Problems(with codes): (1) UTI (urinary tract infection) (2) Left flank pain (3) Acute renal injury (4) CHF (congestive heart failure) Plan discussed with: Patient KESHAV LUCIA MD Jul 29, 2024 15:23
[2024-07-30 01:00] VITALS: BP 127/82; PULSE 91; RESP 17; TEMP 97.9; O2SAT 99
[2024-07-30 05:00] VITALS: BP 115/72; PULSE 82; RESP 17; TEMP 98.3; O2SAT 99
[2024-07-30 05:58] LABS: Basophils # (auto) 0 10 ^3/uL (0-0.2); Basophils % (auto) 0.5 % (0.0-2.0); Eosinophils # (auto) 0.2 10 ^3/uL (0-0.8); Eosinophils % (auto) 3.5 % (0.0-7.0); Hematocrit 28.3 % (36.0-46.0); Hemoglobin 9.3 g/dL (12.2-16.2); Lymphocytes # (auto) 1.2 10 ^3/uL (0.4-5.4); Lymphocytes % (auto) 19.9 % (10.0-50.0); Mean Corpuscular Hemoglobin 28.1 pg (28.0-32.0); Mean Corpuscular Hgb Conc. 32.9 g/dL (32.0-36.0); Mean Corpuscular Volume 85.4 fL (80.0-100.0); Monocytes # (auto) 0.8 10 ^3/uL (0-1.3); Monocytes % (auto) 13.3 % (0.0-12.0); Neutrophils # (auto) 3.8 10 ^3/uL (1.6-8.6); Neutrophils % (auto) 62.8 % (37.0-80.0); Nucleated Red Blood Cells % 0.1 %; Platelet Count (auto) 297 10^3/uL (140-450); Red Blood Cells 3.32 10^6/uL (4.0-5.20); Red Cell Distribution Width 14.7 % (11.8-14.3); White Blood Cell 6.1 10^3/uL (4.4-10.8)
[2024-07-30 08:00] VITALS: PULSE 74
[2024-07-30 09:00] VITALS: BP 129/82; PULSE 88; RESP 20; TEMP 98.6; O2SAT 100
[2024-07-30] MEDS ORDERED: IOHEXOL 300 MG/ML 100ML BOTTLE IJ ONE (10:21)
--- NOTE | 2024-07-30 12:41 | DVH ---
XY KUB ABDOMEN SINGLE VIEW HISTORY: REMOVAL OF NEPHRO TUBE COMPARISON: None PROCEDURE: A technologies division chair film was obtained prior to the procedure. For the purposes of performing a tube ch luis enrique, iodinated contrast was administered through the right nephroureteral tube and sequential images were obtained via fluoroscopy. Total fluoroscopy time was 0.6 minutes. DAP 78 FINDINGS: The initial technologies division chair film revealed the right nephroureteral tube. The contrast injected through the perc utaneous tube is seen entering the renal pelvis and then into the bladder. The right nephroureteral tube was then cut and removed in its entirety. A dressing was then placed. IMPRESSION: a Right nephroureteral tube check and removal.
--- NOTE | 2024-07-30 12:41 | DVH ---
XY KUB ABDOMEN SINGLE VIEW HISTORY: REMOVAL OF NEPHRO TUBE COMPARISON: None PROCEDURE: A off premise service representative film was obtained prior to the procedure. For the purposes of performing a tube ch luis enrique, iodinated contrast was administered through the right nephroureteral tube and sequential images were obtained via fluoroscopy. Total fluoroscopy time was 0.6 minutes. DAP 78 FINDINGS: The initial off premise service representative film revealed the right nephroureteral tube. The contrast injected through the perc utaneous tube is seen entering the renal pelvis and then into the bladder. The right nephroureteral tube was then cut and removed in its entirety. A dressing was then placed. IMPRESSION: a Right nephroureteral tube check and removal.
[2024-07-30 13:00] VITALS: BP 137/83; PULSE 75; RESP 20; TEMP 97.8; O2SAT 100
[2024-07-30] MEDS ORDERED: SENN-105 PO (13:24)
[2024-07-30] MEDS ORDERED: CEFD300C2 PO (13:24)
[2024-07-30] MEDS ORDERED: HYDR-4902 PO (13:24)
--- NOTE | 2024-07-30 13:29 | DVHDS2 ---
Discharge Summary Date of Admission Jul 27, 2024 at 00:58 Date of Discharge: Jul 30, 2024 Labs/Diagnostic Data: Laboratory Results Test 07/30/24 05:07 07/29/24 06:48 07/26/24 16:40 07/26/24 00:00 White Blood Count 6.1 10^3/uL (4.4-10.8) Red Blood Count 3.32 10^6/uL (4.0-5.20) Hemoglobin 9.3 g/dL (12.2-16.2) Hematocrit 28.3 % (36.0-46.0) Mean Corpuscular Volume 85.4 fL (80.0-100.0) Mean Corpuscular Hemoglobin 28.1 pg (28.0-32.0) Mean Corpuscular Hemoglobin Concent 32.9 g/dL (32.0-36.0) Red Cell Distribution Width 14.7 % (11.8-14.3) Platelet Count 297 10^3/uL (140-450) Mean Platelet Volume 7.8 fL (6.9-10.8) Neutrophils (%) (Auto) 62.8 % (37.0-80.0) Lymphocytes (%) (Auto) 19.9 % (10.0-50.0) Monocytes (%) (Auto) 13.3 % (0.0-12.0) Eosinophils (%) (Auto) 3.5 % (0.0-7.0) Basophils (%) (Auto) 0.5 % (0.0-2.0) Neutrophils # (Auto) 3.8 10 ^3/uL (1.6-8.6) Lymphocytes # (Auto) 1.2 10 ^3/uL (0.4-5.4) Monocytes # (Auto) 0.8 10 ^3/uL (0-1.3) Eosinophils # (Auto) 0.2 10 ^3/uL (0-0.8) Basophils # (Auto) 0 10 ^3/uL (0-0.2) Nucleated Red Blood Cells 0.1 % Prothrombin Time 11.0 sec (9.3-11.8) Prothrombin Time INR 1.04 (0.9-1.15) Activated Partial Thromboplast Time 29.3 SEC (24.5-34.5) Sodium Level 138 mmol/L (136-145) Potassium Level 3.9 mmol/L (3.5-5.1) Chloride Level 103 mmol/L (98-107) Carbon Dioxide Level 22 mmol/L (20-31) Anion Gap 13 (5-15) Blood Urea Nitrogen 25 mg/dL (9-23) Creatinine 1.52 mg/dL (0.550-1.02) Glomerular Filtration Rate Calc 36 mL/min (>90) BUN/Creatinine Ratio 16.4 (10.0-20.0) Serum Glucose 93 mg/dL (74-106) Calcium Level 10.3 mg/dL (8.7-10.4) Lactic Acid Level 1.8 mmol/L (0.4-2.0) Total Bilirubin 0.6 mg/dL (0.2-1.0) Aspartate Amino Transferase (AST) 12 U/L (13-40) Alanine Aminotransferase (ALT) 10 U/L (7-40) Alkaline Phosphatase 115 U/L (46-116) B-Type Natriuretic Peptide 231.19 pg/mL (0-100) Total Protein 7.6 g/dL (5.7-8.2) Albumin 4.4 g/dL (3.2-4.8) Urine Color Yellow (Yellow) Urine Clarity Ex.turbid (Clear) Urine pH 6.0 (5.0-9.0) Urine Specific [place] 1.014 (1.001-1.035) Urine Protein 1+ (Negative) Urine Ketones Trace (Negative) Urine Blood 3+ /uL (Negative) Urine Nitrite Negative (Negative) Urine Bilirubin Negative (Negative) Urine Urobilinogen Normal mg/dL (Negative) Urine Leukocyte Esterase 3+ /uL (Negative) Urine RBC 14 /hpf (0 - 4) Urine WBC Clumps Present /hpf (None Seen) Urine Microscopic WBC 341 /HPF (0-5) Urine Squamous Epithelial Cells None seen /hpf (<5) Urine Bacteria Mod /hpf (None Seen) Urine Mucus Few (None Seen) Urine Yeast (Budding) Moderate /hpf (None Seen) Urine Glucose Normal mg/dL (Normal) Other Laboratory Tests 07/30/24 05:07 07/29/24 06:48 Brief Hx & Hospital Course: 69-year-old female with past medical history of CHF Daily Dobutamine trip, COPD, CKD, A fib Presents with complaints of left side of flank pain. Pain is 10 out of 10 continuous. Patient had Left PNT replaced two months ago. However stopped working two days ago. Collection bag is Occluded with sedimentation. Patient's daughter is a nurse and Complete dressing changes On a daily basis. She reported malodorous Purulent Discharge. Catheter insertion site is also warm to palpation. At this time patient has fevers, chills, chest pain, shortness of breath, chest pain,Nausea, vomiting. She is admitted and evaluated by urologist felt high-risk for any interventions due to her end-stage cardiomyopathy. Patient is continued on her home dobutamine drip while she was in the hospital. Patient is evaluated by interventional radiologist. Her kidney function has improved. Patient no longer has any kidney stones or ureteral stones. Patient apparently passed multiple stones with urination. Therefore it is felt the patient does not need ureteral nephrostomy tube any longer therefore this was removed by Interventional Radiology. Patient otherwise clinically doing well. No other acute issues identified. Therefore it is felt she could be safely discharged home. However I did talked with the patient regarding her kidney function and advised her to follow up with PCP and Nephrology to remove the kidney function tests. Otherwise she was also advised to follow up with her primary care physician and banquet manager for her end-stage cardiomyopathy and further evaluations as appropriately. Overall given patient is clinically stable not having any other issues it is felt she could be safely discharged home. Patient verbalized understanding over hospital diagnosis, treatment she received, discharge medications, discharge instructions and agree with follow-up plan of care as outlined. Consults/Reason for consult EXAM: Two-dimensional and M-mode echocardiogram with Doppler and color Doppler. Blood Pressure: 117/75 mmHg INDICATION CHF RISK FACTORS Height: 4' 10", Weight: 99 DIMENSIONS LVDd 5.7 (3.8-5.7cm) LA (2D) 3.6 (1.9-4.0cm) Aortic Root 2.9 (2.0- 3.7cm) LVDs 5.5 (2.5-4.0cm) LA (MM) (1.9-4.0cm) Aortic Cusp Exc 1.5 (1.5- 2.0cm) EF (%) 15.0 (55-70%) Rt. Atrium 4.0 (1.9-4.0cm) Asc. Aorta cm IVSd 1.1 (0.7-1.1cm) RV (D) (1.8-2.4cm) PWd 1.0 (0.7-1.1cm) Mitral Valve Mitral Mitral Stenosis E wave 0.80m/s MV Mean GR. mmHg A wave 1.20m/s MV Peak GR. mmHg E/A ratio 0.7 2D MVA cm2 Aortic Valve Aortic Valve Aortic Stenosis V1 0.61m/s AO Mean GR. 4mmHg V2 1.30m/s AO Peak GR. 8mmHg LVOT Diameter 2.2 (1.8-2.4cm) Doppler ANJELICA 1.78cm2 Pulmonic Valve V2 0.40m/s Tricuspid Valve TR Velocity 2.74m/s RVSP 30mmHg Conclusion Technically good study. Sinus rhythm. Left ventricular enlargement. Left atrial enlargement. Mild aortic sclerosis. Mitral and tricuspid are structurally normal. Left ventricular systolic performance is diminished. EF is approximately 15-20% at best. Dopplers unremarkable. No pericardial effusion masses or vegetations. SIGNED BY: MART CAMPUZANO Sr., MD SIGNED DATE/TIME: 07/28/24 1416 Operations or Procedures XY KUB ABDOMEN SINGLE VIEW HISTORY: REMOVAL OF NEPHRO TUBE COMPARISON: None PROCEDURE: A sap portal developer film was obtained prior to the procedure. For the purposes of performing a tube check, iodinated contrast was administered through the right nephroureteral tube and sequential images were obtained via fluoroscopy. Total fluoroscopy time was 0.6 minutes. DAP 78 FINDINGS: The initial sap portal developer film revealed the right nephroureteral tube. The contrast injected through the percutaneous tube is seen entering the renal pelvis and then into the bladder. The right nephroureteral tube was then cut and removed in its entirety. A dressing was then placed. IMPRESSION: a Right nephroureteral tube check and removal. Condition at Discharge: Stable Final Diagnosis/Problems List Left flank pain status post removal of ureteral nephrostomy tube, acute urinary tract infection, chronic kidney disease stage 2 Discharge Disposition: Home Discharge Instruct/Medications Diet: Consistent carbohydrate, Cardiac 2g Na,low cholest Activity: No Restrictions, As Tolerated Follow Up/Referral: With the primary care physician next week to repeat your kidney function blood tests. Also follow up with your kidney doctor in two weeks to repeat the blood test and further management of your kidney failure. Medications: As prescribed and home medications as you were taking New Medications: Cefdinir (Cefdinir) 300 Mg Cap 1 CAP PO BID, #10 CAP Hydrocodone-Acetaminophen (Hydrocodone Bitartrate/AC 5-325 mg) 1 Tab Tab 1 TAB PO [id number] PRN, #10 TAB Senna (Senna) 8.6 Mg Tab 8.6 MG PO QPM, #14 TAB Continued Medications: Amiodarone HCl (Amiodarone HCl) 200 Mg Tab 1 TAB PO DAILY for 30 Days, #30 TAB 3 Refills Apixaban Base (Eliquis) 2.5 Mg Tab 2.5 MG PO BID, #60 TAB 5 Refills Atorvastatin Calcium (Atorvastatin Calcium) 80 Mg Tab 1 TAB PO DAILY, #30 TAB 5 Refills Budesonide-Formoterol Fumarate (Breyna 160-4.5 Mcg/Act) 1 Aer Aer 2 PUFF PO BID for 30 Days, #1 AER Carvedilol (Coreg) 3.125 Mg Tab 3.125 MG PO Q12HR for 30 Days, #60 TAB Dapagliflozin Propanediol (Farxiga) 10 Mg Tab 10 MG PO, TAB Dobutamine HCl (Dobutamine HCl) 250 Mg/20 Ml Inj 250 MG IV, INJ Furosemide (Furosemide) 40 Mg Tab 40 MG PO DAILY Hydralazine HCl (Hydralazine HCl) 25 Mg Tab 25 MG PO DAILY, #30 TAB 5 Refills Ipratropium-Albuterol (Combivent Respimat) Respimat Aer 1 PUFF PO QID PRN for 30 Days, #1 AER 2 Refills INHALE 1 PUFF BY MOUTH INTO THE LUNGS FOUR TIMES DAILY Isosorbide Mononitrate (Isosorbide Mononitrate Er) 60 Mg Tab 1 TAB PO DAILY, #90 TAB 3 Refills Levothyroxine Sodium (Levothyroxine Sodium) 100 Mcg Tab 100 MCG PO QAM for 30 Days, MCG Lorazepam (Ativan) 0.5 Mg Tab 1 TAB PO Q6HPRN PRN, #30 TAB Midodrine HCl (Midodrine Hydrochloride) 10 Mg Tab 10 MG PO TID Pantoprazole Sodium Sesquihydr (Protonix) 40 Mg Tab 40 MG PO DAILY Potassium Chloride (Potassium Chloride Cr) 10 Meq Tb 1 TAB PO DAILY Senna (Senokot) 8.6 Mg Tab 1 TAB PO BID, #40 TAB Sodium Bicarbonate (Sodium Bicarbonate) 650 Mg Tab 1 TAB PO TID Discontinued Medications: Bumetanide (Bumetanide) 2 Mg Tab 2 MG PO DAILY for 30 Days, MG Tamsulosin Hcl (Tamsulosin Hcl) 0.4 Mg Cap 0.4 MG PO QAM for 30 Days, MG Discharge Statement: "Patient was advised to return to the ER or call 911 if any headaches, dizziness, shortness of breath, chest pain, abdominal pain, bleeding, fevers, or worsening of medical condition. Patient was counseled about treatment plan, medications, possible side effects, patientverbalized understanding. All questions were answered to the best of my ability. This discharge took greater then 30 minutes in planning, reviewing documentation, counseling the patient, and discussing with other team members." ASSESSMENT ASSESSMENT Assessment Left flank pain status post removal of ureteral nephrostomy tube, acute urinary tract infection, chronic kidney disease stage 2 KESHAV LUCIA MD Jul 30, 2024 13:29
[2024-07-30 15:33] VITALS: BP 137/83; PULSE 75; RESP 20; TEMP 97.8; O2SAT 100
== END 2024-07-30 17:15 | disposition home or self-care (01) | DRG 699 ==
LOC: ER 15:43 → OVERFLOW 07-27 00:58 → TELE-WESTW 07-27 03:09
PROVIDERS: ADMIT Nurse Practitioner Family; ATTEND Nurse Practitioner Family
PROC: 0TP5X0Z Removal of Drainage Device from Kidney, External Approach (ICD-10-PCS; principal; 2024-07-30)
DX: N99.522 Malfunction of incontinent external stoma of urinary tract (principal); E44.1 Mild protein-calorie malnutrition; I13.0 Hypertensive heart and chronic kidney disease with heart failure and stage 1 through stage 4 chronic kidney disease, or unspecified chronic kidney disease; N39.0 Urinary tract infection, site not specified; I42.8 Other cardiomyopathies; I50.9 Heart failure, unspecified; E78.5 Hyperlipidemia, unspecified; J44.9 Chronic obstructive pulmonary disease, unspecified; I48.91 Unspecified atrial fibrillation; N18.2 Chronic kidney disease, stage 2 (mild); N20.0 Calculus of kidney; N28.1 Cyst of kidney, acquired; Z79.01 Long term (current) use of anticoagulants; Z83.3 Family history of diabetes mellitus; Z79.899 Other long term (current) drug therapy; Y84.8 Other medical procedures as the cause of abnormal reaction of the patient, or of later complication, without mention of misadventure at the time of the procedure; Y92.89 Other specified places as the place of occurrence of the external cause
CPT/HCPCS: 36415; 50389; 74018; 74176; 74235; 76775; 80048; 80053; 81001; 83605; 83880; 85025; 85610; 85730; 87086; 87088; 87186; 93306; 96365; 96375; 97163; G0378; J2185